=== PATIENT | male | born 1940 | race Asian ===

== ENCOUNTER 2019-09-24 13:46 | Inpatient (IN) | payer OTHER, MEDICARE ==
[2019-09-24] MEDS ORDERED: ACETAMINOPHEN 1000 MG/100 ML VIAL (NON FORMULARY) IVPB ONE (14:14)
[2019-09-24] MEDS ORDERED: FAMOTIDINE 20 MG/50 ML IVPB 50 ML IVPB ONE (14:14)
[2019-09-24] MEDS ORDERED: ONDANSETRON 4 MG/2 ML VIAL IVPUSH ONE (14:14)
[2019-09-24] MEDS ORDERED: SODIUM CHLORIDE 0.9% 1000 ML INFUS.BAG IV ONE (14:14)
[2019-09-24] MEDS ORDERED: ACETAMINOPHEN INJECTION 100 ML IVPB ONE (14:16)
[2019-09-24] MEDS ORDERED: FAMOTIDINE 20 MG/50 ML IVPB 20 MG/50 ML MG IVPB ONE ×2 (14:16→15:00)
[2019-09-24] MEDS ORDERED: ONDANSETRON 4 MG/2 ML VIAL ONE (14:16)
--- NOTE | 2019-09-24 14:22 | PDOC ---
Documentation entered by Elida Roberts SCRIBE, acting as scribe for Beverley Brantley DO. Beverley Brantley DO: This documentation has been prepared by the scribe, Elida Roberts SCRIBE, under my direction and personally reviewed by me in its entirety. I confirm that the documentation accurately reflects all work, treatment, procedures, and medical decision making performed by me. 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 The patient reports he had the stitches removed 3 days ago (09/20). The patient reports he had 2 episodes of nonbilious, nonbloody emesis today, associated with urinary symptoms of dysuria, urinary urgency, frequency, and hesitancy. The patient reports he had a fever last night to tmax of 101.2, took a dose of Tylenol at 3:00 am. Denies flank pain, abdominal pain, diarrhea. The patient reports he is having normal bowel movements and is passing flatus. Allergies: NKA Social history: no tobacco, alcohol or recreational drug use reported. Surgical history: Total R. nephrectomy PCP: Dr. Kent Past History - Medical History Allergies/Adverse Reactions: Allergies Allergy/AdvReac Type Severity Reaction Status Date / Time No Known Allergies Allergy Verified 09/24/19 13:48 Home Medications: Ambulatory Orders Amlodipine Besylate [Norvasc -] 5 mg PO DAILY 09/24/19 Apixaban [Eliquis] 5 mg PO DAILY 09/24/19 Cancer: Yes (RIGHT KIDNEY REMOVED- TRANSITIONAL CELL CARCINOMA) Cardiac Disorders: Yes (A FLUTTER H/O) CVA: No COPD: No Other medical history: RIGHT KIDNEY REMOVED- TRANSITIONAL CELL CARCINOMA - Psycho-Social/Smoking History Smoking History: Never smoked Have you smoked in the past 12 months: No - Substance Abuse Hx (Audit-C & DAST Scrn) How often the patient has a drink containing alcohol: Never Score: In Men: 4 or > Positive; In Women: 3 or > Positive: 0 Screen Result (Pos requires Nsg. Audit-10AR): Negative In the last yr the pt used illegal drug/Rx for NonMed reason: No Score: Yes response is considered Positive: 0 Screen Result (Positive result requires Nsg. DAST-10): Negative Review of Systems - Review of Systems Able to Perform ROS?: Yes Comments:: 09/24/19 14:55 GENERAL/CONSTITUTIONAL: +fever, no chills, or weakness. . HEAD, EYES, EARS, NOSE AND THROAT: No change in vision. No ear pain or discharge. No sore throat. GASTROINTESTINAL: +2 episodes of nonbilious, nonbloody vomiting, no abdominal pain, no flank pain, no diarrhea, no constipation. GENITOURINARY: +dysuria, urinary urgency, frequency and hesitancy. CARDIOVASCULAR: No chest pain or shortness of breath. RESPIRATORY: No cough, wheezing, or hemoptysis. MUSCULOSKELETAL: No joint or muscle swelling or pain. No neck or back pain. SKIN: No rash NEUROLOGIC: No headache, vertigo, loss of consciousness, or change in strength/sensation. ENDOCRINE: No increased thirst. No abnormal weight change. HEMATOLOGIC/LYMPHATIC: No anemia, easy bleeding, or history of blood clots. ALLERGIC/IMMUNOLOGIC: No hives or skin allergy. *Physical Exam - Vital Signs Last Vital Signs Temp Pulse Resp BP Pulse Ox 100.5 F H 94 H 19 178/90 H 96 09/24/19 13:48 09/24/19 13:48 09/24/19 13:48 09/24/19 13:48 09/24/19 13:48 - Physical Exam 09/24/19 14:36 Constitutional: Awake, alert, oriented. No acute distress. Head: Normocephalic. Atraumatic Eyes: PERRL. EOMI. Conjunctivae are not pale. ENT: Mucous membranes are moist and intact. Posterior pharynx without exudate or erythema. Uvula midline. Neck: Supple. Full ROM. No lymphadenopathy. Cardiovascular: +slight tachycardia, Regular rhythm. S1, S2 regular. Distal pulses are 2+ and symmetric. Pulmonary/Chest: No evidence of respiratory distress. Clear to auscultation bilaterally No wheezing, rales or rhonchi. Abdominal: soft, +tenderness over the incisions. +3 laparoscopic incision: 1 at the umbilical, left upper and right upper quadrant. +Linear incision to right upper quadrant, steri strip in place, no drainage or serosanguinous fluid underneath, +a little tenderness over the bladder, Back: No CVA tenderness. Musculoskeletal: No leg edema. No cyanosis. No clubbing. Full range of motion in all extremities. No calf tenderness. Radial/pedal pulses are intact and 2+ bilaterally Skin: Skin is warm and dry. No petechiae. No purpura. Neurological: Alert and oriented to person, place, and time. Cranial nerves II-XII are grossly intact. Normal speech. Strength is grossly symmetric. No sensory deficits. Psychiatric: Good eye contact. Normal interaction, affect and behavior. Heart Score/ECG Review - ECG Intrepretation Comment:: 09/24/19 15:46 aflutter at 82, nl axis, no acute st/t wave findings ED Treatment Course - LABORATORY CBC & Chemistry Diagram: 09/24/19 14:16 09/24/19 14:16 Medical Decision Making - Medical Decision Making 09/24/19 14:19 a/p: 79yo male with recent nephrectomy for transitional cell of the R kidney who underwent removal 09/04 and then had his catheter and sutures removed this past thursday -pt with a fever since yesterday -urinary freq, urgency, dysuria, today with nbnb vomiting -normal bm -passing flatus -n/v today, tmax 101.3 -no flank pain -no drainage from his incisions -will send labs, cultures, ua, ucx, ct abd/pelvis, cxr, covid swab -no resp symptoms -last tylenol was 3am -will hydrate, nausea control, tylenol -will most likely have a uti and need abx 09/24/19 15:18 wbc 16 +uti rocephin iv ordered discussed staying in the hospital with the patient for iv abx agrees to stay for admission ct pending 09/24/19 15:19 cxr clear 09/24/19 16:02 ct read reviewed and discussed with the patient pt states feeling better will give po challenge will need admission for uti, sepsis microblog sent to [facility] for admission 09/24/19 16:[address] Mcmillan who accepts pt to service Discharge - Discharge Information Problems reviewed: Yes Clinical Impression/Diagnosis: UTI (urinary tract infection), Sepsis Condition: Fair - Admission Yes - Follow up/Referral Referrals: Kristy Kent [Primary Care Provider] - - Patient Discharge Instructions - Post Discharge Activity
[2019-09-24 14:29] LABS: EPITHELIAL CELLS RARE /hpf
[2019-09-24] MEDS ORDERED: CEFTRIAXONE 1 GM in DEXTROSE 5%-WATER - 100 ML IVPB ONE (14:54)
[2019-09-24 15:05] LABS: ALBUMIN 3.7 g/dl (3.4-5.0); BILIRUBIN,TOTAL 1.1 mg/dl (0.2-1); CALCIUM 8.3 mg/dl (8.5-10); CREATININE 1.3 mg/dl (0.55-1.3); POTASSIUM 3.9 mmol/L (3.5-5.1); TOT PROT 6.4 g/dl (6.4-8.2)
[2019-09-24 15:12] LABS: BASO % 0.2 % (0-2.0); HEMOGLOBIN 13.5 GM/dl (11.7-16.9); LYMPH % 3.9 % (8-40); MCH 33.4 pg (25.7-33.7); MEAN CELL VOLUME 101.4 fl (80-96); MEAN PLT VOLUME 7.7 fl (7.5-11.1); MONO % 6.5 % (3.8-10.2); NEUT % 89.4 % (42.8-82.8); PLATELET COUNT 237 K/MM3 (134-434); RBC 4.04 M/mm3 (4.00-5.60); RDW 12.7 % (11.9-15.9)
[2019-09-24 17:34] VITALS: BMI 22.9
[2019-09-24] MEDS ORDERED: ONDANSETRON 4 MG/2 ML VIAL IVPUSH PRN (18:35)
[2019-09-24] MEDS: SODIUM CHLORIDE 1,000 ML IV SCH (20:01)
--- NOTE | 2019-09-24 20:45 | HP ---
CHIEF COMPLAINT: PCP: [facility] Case Manager: Galina ([facility]) HISTORY OF PRESENT ILLNESS: This is a 79-year-old male with a past medical history significant for HTN (on Norvasc), A-flutter (on Eliquis) and Transitional Cell Carcinoma of the Right Kidney s/p total right nephrectomy (09/05/19 at [facility]). Who presents to the ED with fever, NBNB emesis, and dysuria. The patient reports having the debbie removed 3 days ago. The patient reports he had 2 episodes of nonbilious, nonbloody emesis today, associated with urinary symptoms of dysuria, urinary urgency, frequency, and hesitancy. The patient reports having a subjective fever 101.2, taking Tylenol at 3:00 am. Patient denies flank pain, abdominal pain, diarrhea. The patient reports he is having normal bowel movements and is passing flatus. Patient denies sick contacts or recent travel. 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 Allergies No Known Allergies Allergy (Verified 09/24/19 13:48) HOME MEDICATIONS: Home Medications Medication Instructions Recorded Amlodipine Besylate [Norvasc -] 5 mg PO DAILY 09/24/19 Apixaban [Eliquis] 5 mg PO DAILY 09/24/19 REVIEW OF SYSTEMS CONSTITUTIONAL: fever, diaphoresis Absent: chills, generalized weakness, malaise, loss of appetite, weight change HEENT: Absent: rhinorrhea, nasal congestion, throat pain, throat swelling, difficulty swallowing, mouth swelling, ear pain, eye pain, visual changes CARDIOVASCULAR: Absent: chest pain, syncope, palpitations, irregular heart rate, lightheadedness, peripheral edema RESPIRATORY: Absent: cough, shortness of breath, dyspnea with exertion, orthopnea, wheezing, stridor, hemoptysis GASTROINTESTINAL: nausea, vomiting, Absent: abdominal pain, abdominal distension, diarrhea, constipation, melena, hematochezia GENITOURINARY: dysuria, frequency, urgency, hesitancy Absent: hematuria, flank pain, genital pain MUSCULOSKELETAL: Absent: myalgia, arthralgia, joint swelling, back pain, neck pain SKIN: Absent: rash, itching, pallor HEMATOLOGIC/IMMUNOLOGIC: Absent: easy bleeding, easy bruising, lymphadenopathy, frequent infections ENDOCRINE: Absent: unexplained weight gain, unexplained weight loss, heat intolerance, cold intolerance NEUROLOGIC: Absent: headache, focal weakness or paresthesias, dizziness, unsteady gait, seizure, mental status changes, bladder or bowel incontinence PSYCHIATRIC: Absent: anxiety, depression, suicidal or homicidal ideation, hallucinations. PHYSICAL EXAMINATION Vital Signs - 24 hr 09/24/19 09/24/19 09/24/19 13:48 16:15 17:15 Temperature 100.5 F H 98.4 F 98.5 F Pulse Rate 94 H 91 H Pulse Rate [ 80 Right] Respiratory 19 18 Rate Blood Pressure 178/90 H 157/77 Blood Pressure 145/93 [Left Arm] O2 Sat by Pulse 96 97 100 Oximetry (%) 09/24/19 17:18 Temperature Pulse Rate Pulse Rate [ Right] Respiratory Rate Blood Pressure Blood Pressure [Left Arm] O2 Sat by Pulse 98 Oximetry (%) GENERAL: Awake, alert, and fully oriented, in no acute distress. HEAD: Normal with no signs of trauma. EYES: Pupils equal, round and reactive to light, extraocular movements intact, sclera anicteric, conjunctiva clear. No lid lag. EARS, NOSE, THROAT: Ears normal, nares patent, oropharynx clear without exudates. Dry mucous membranes. NECK: Normal range of motion, supple without lymphadenopathy, JVD, or masses. LUNGS: Breath sounds equal, clear to auscultation bilaterally. No wheezes, and no crackles. No accessory muscle use. HEART: Regular rate and rhythm, normal S1 and S2 without murmur, rub or gallop. ABDOMEN: Soft, nontender, not distended, normoactive bowel sounds, no guarding, no rebound, no masses. No hepatomegaly or splenomegaly. Surgical scar- healed MUSCULOSKELETAL: Normal range of motion at all joints. No bony deformities or tenderness. No CVA tenderness. UPPER EXTREMITIES: 2+ pulses, warm, well-perfused. No cyanosis. No clubbing. No peripheral edema. LOWER EXTREMITIES: 2+ pulses, warm, well-perfused. No calf tenderness. No peripheral edema. NEUROLOGICAL: Cranial nerves II-XII intact. Normal speech. Gait not observed. PSYCHIATRIC: Cooperative. Good eye contact. Appropriate mood and affect. SKIN: Warm, dry, normal turgor, no rashes or lesions noted, normal capillary re fill. Laboratory Results - last 24 hr 09/24/19 09/24/19 09/24/19 13:58 14:16 14:16 WBC 16.0 H RBC 4.04 Hgb 13.5 Hct 41.0 MCV 101.4 H MCH 33.4 MCHC 33.0 RDW 12.7 Plt Count 237 MPV 7.7 Absolute Neuts (auto) 14.4 Neutrophils % 89.4 H D Lymphocytes % 3.9 L D Monocytes % 6.5 Eosinophils % 0.0 D Basophils % 0.2 PTT (Actin FS) 26.7 Sodium Potassium Chloride Carbon Dioxide Anion Gap BUN Creatinine Est GFR (CKD-EPI)AfAm Est GFR (CKD-EPI)NonAf Random Glucose Lactic Acid Calcium Total Bilirubin AST ALT Alkaline Phosphatase Total Protein Albumin Urine Color Yellow Urine Appearance Slightly Urine pH 7.0 Urine Protein 2+ H Urine Glucose (UA) Negative Urine Ketones Trace Urine Blood 1+ H Urine Nitrite Negative Urine Bilirubin Negative Urine Urobilinogen 1.0 Ur Leukocyte Esterase 2+ Urine RBC 10-20 Urine WBC 40-60 Ur Transition Epith Cell Rare Urine Bacteria Moderate 09/24/19 09/24/19 14:16 14:16 WBC RBC Hgb Hct MCV MCH MCHC RDW Plt Count MPV Absolute Neuts (auto) Neutrophils % Lymphocytes % Monocytes % Eosinophils % Basophils % PTT (Actin FS) Sodium 130 L Potassium 3.9 Chloride 100 Carbon Dioxide 22 Anion Gap 8 BUN 17.0 Creatinine 1.3 Est GFR (CKD-EPI)AfAm 60.15 Est GFR (CKD-EPI)NonAf 51.90 Random Glucose 148 H Lactic Acid 1.1 Calcium 8.3 L Total Bilirubin 1.1 H AST 41 H ALT 36 Alkaline Phosphatase 86 Total Protein 6.4 Albumin 3.7 Urine Color Urine Appearance Urine pH Urine Protein Urine Glucose (UA) Urine Ketones Urine Blood Urine Nitrite Urine Bilirubin Urine Urobilinogen Ur Leukocyte Esterase Urine RBC Urine WBC Ur Transition Epith Cell Urine Bacteria ASSESSMENT/PLAN: This is a 79 y/o male with a PMHx of HTN (on Norvasc), A- Flutter (On Eliquis), Transitional Cell Carcinoma of the Right Kidney s/p R- Nephrectomy ([facility], 09/05/19). Admitted for Sepsis, Complicated UTI for further evaluation of their emergent condition. Plan: See Problem List FEN PO fluids as tolerated Replete lytes prn Low Na Diet DVT ppx OOB SCDs Continue Eliquis Dispo: Requires Inpatient Care Family Medical History Family History: As Documented Family Hx Cancer: Father (Liver, age 88) Problem List - Problem (1) Sepsis Assessment/Plan: Likely secondary to UTI qSOFA 0 Sepsis Critera Met: T 100.5, WBC 16 Urine culture-pending +Leukocytosis with L-shift T Max 100.5~101.5 Fluid bolus given in ED Continue IVF Continue Rocephin for UTI Appreciate ID consult Monitor CBC, BMP Monitor vitals Maintain MAP>65 Tylenol prn Code(s): A41.9 - SEPSIS, UNSPECIFIED ORGANISM (2) Complicated UTI (urinary tract infection) Assessment/Plan: s/p Long removal (outpatient) UA- +2 protein, +1 blood, +2 leukocyte esterase, 40-60 WBC, moderate Bacteria Urine Culture-pending Sepsis Criteria Met Ceftriaxone initiated in ED, will continue Appreciate ID consult Monitor CBC, CMP Monitor vitals Tylenol prn Code(s): N39.0 - URINARY TRACT INFECTION, SITE NOT SPECIFIED (3) Hyponatremia Assessment/Plan: Likely due to Dehydration Continue IVF Monitor CMP Monitor vitals Code(s): E87.1 - HYPO-OSMOLALITY AND HYPONATREMIA (4) Hyperglycemia Assessment/Plan: Likely secondary to Sepsis due to UTI Monitor CMP Code(s): R73.9 - HYPERGLYCEMIA, UNSPECIFIED (5) HTN (hypertension) Assessment/Plan: stable Monitor BP Continue Norvasc Code(s): I10 - ESSENTIAL (PRIMARY) HYPERTENSION (6) S/p nephrectomy Assessment/Plan: Secondary to Transitional Cell Ca R- Kidney f/u with Nephrology outpatient Monitor CMP Code(s): Z90.5 - ACQUIRED ABSENCE OF KIDNEY (7) Encounter for screening laboratory testing for COVID-19 virus Assessment/Plan: Low Risk Covid PCR-pending Isolation Precautions Code(s): Z11.59 - ENCOUNTER FOR SCREENING FOR OTHER VIRAL DISEASES Visit type - Medication Review Med list reviewed for High Risk Meds patients 65 and older: Yes - Emergency Visit Emergency Visit: Yes ED Registration Date: 08/15/20 Care time: The patient presented to the Emergency Department on the above date and was hospitalized for further evaluation of their emergent condition. - New Patient This patient is new to me today: Yes Date on this admission: 09/24/19 - Critical Care Critical Care patient: No
[2019-09-24] MEDS: APIXABAN 5 MG TABLET PO SCH (21:39)
[2019-09-24] MEDS: ACETAMINOPHEN 325 MG TABLET (FP) PO PRN (23:31)
[2019-09-25] MEDS: ACETAMINOPHEN 325 MG TABLET (FP) PO PRN (06:15)
--- NOTE | 2019-09-25 08:56 | PN ---
Physical Exam: SUBJECTIVE: Patient seen and examined at bedside,reports chills overnight, c/o dysuria and urinary dribbling, denies fever, chills, hematuria, abdominal/ flank pain. OBJECTIVE: Vital Signs Period Temp Pulse Resp BP Sys/Garcia Pulse Ox Last 24 Hr 98.4 F-101.5 F 80-108 18-19 135-178/76-93 96-100 GENERAL: The patient is awake, alert, and fully oriented, in no acute distress. HEAD: Normal with no signs of trauma. EYES: PERRL, extraocular movements intact, sclera anicteric, conjunctiva clear. No ptosis. ENT: Ears normal, nares patent, oropharynx clear without exudates, moist mucous membranes. NECK: Trachea midline, full range of motion, supple. LUNGS: Breath sounds equal, clear to auscultation bilaterally, no wheezes, no crackles, no accessory muscle use. HEART: Regular rate and rhythm, S1, S2 without murmur, rub or gallop. ABDOMEN: Soft, nontender, nondistended, normoactive bowel sounds, no guarding, no rebound, no hepatosplenomegaly, no masses. surgical incision remains clean and dry EXTREMITIES: 2+ pulses, warm, well-perfused, no edema. NEUROLOGICAL: Cranial nerves II through XII grossly intact. Normal speech, gait not observed. PSYCH: Normal mood, normal affect. SKIN: Warm, dry, normal turgor, no rashes or lesions noted Laboratory Results - last 24 hr 09/24/19 09/24/19 09/24/19 13:58 14:16 14:16 WBC 16.0 H RBC 4.04 Hgb 13.5 Hct 41.0 MCV 101.4 H MCH 33.4 MCHC 33.0 RDW 12.7 Plt Count 237 MPV 7.7 Absolute Neuts (auto) 14.4 Neutrophils % 89.4 H D Lymphocytes % 3.9 L D Monocytes % 6.5 Eosinophils % 0.0 D Basophils % 0.2 PTT (Actin FS) 26.7 Sodium Potassium Chloride Carbon Dioxide Anion Gap BUN Creatinine Est GFR (CKD-EPI)AfAm Est GFR (CKD-EPI)NonAf POC Glucometer Random Glucose Lactic Acid Calcium Total Bilirubin AST ALT Alkaline Phosphatase Total Protein Albumin Urine Color Yellow Urine Appearance Slightly Urine pH 7.0 Urine Protein 2+ H Urine Glucose (UA) Negative Urine Ketones Trace Urine Blood 1+ H Urine Nitrite Negative Urine Bilirubin Negative Urine Urobilinogen 1.0 Ur Leukocyte Esterase 2+ Urine RBC 10-20 Urine WBC 40-60 Ur Transition Epith Cell Rare Urine Bacteria Moderate 09/24/19 09/24/19 09/25/19 14:16 14:16 05:57 WBC RBC Hgb Hct MCV MCH MCHC RDW Plt Count MPV Absolute Neuts (auto) Neutrophils % Lymphocytes % Monocytes % Eosinophils % Basophils % PTT (Actin FS) Sodium 130 L Potassium 3.9 Chloride 100 Carbon Dioxide 22 Anion Gap 8 BUN 17.0 Creatinine 1.3 Est GFR (CKD-EPI)AfAm 60.15 Est GFR (CKD-EPI)NonAf 51.90 POC Glucometer 113 Random Glucose 148 H Lactic Acid 1.1 Calcium 8.3 L Total Bilirubin 1.1 H AST 41 H ALT 36 Alkaline Phosphatase 86 Total Protein 6.4 Albumin 3.7 Urine Color Urine Appearance Urine pH Urine Protein Urine Glucose (UA) Urine Ketones Urine Blood Urine Nitrite Urine Bilirubin Urine Urobilinogen Ur Leukocyte Esterase Urine RBC Urine WBC Ur Transition Epith Cell Urine Bacteria Active Medications Generic Name Dose Route Start Last Admin Trade Name Freq PRN Reason Stop Dose Admin Acetaminophen 650 mg 09/24/19 18:33 09/25/19 06:15 Tylenol - PO 650 mg Q6H PRN Administration FEVER Amlodipine Besylate 5 mg 09/25/19 10:00 Norvasc - PO DAILY LISBETH Apixaban 5 mg 09/24/19 22:00 09/24/19 21:39 Eliquis - PO 5 mg BID LISBETH Administration Ceftriaxone Sodium 1 gm/ 50 mls @ 100 mls/hr 09/25/19 10:00 Dextrose IVPB DAILY LISBETH Sodium Chloride 1,000 mls @ 100 mls/hr 09/24/19 18:45 09/24/19 20:01 Normal Saline - IV 100 mls/hr ASDIR LISBETH Administration Famotidine/Sodium Chloride 20 mg in 50 mls @ 100 mls/hr 09/25/19 10:00 Pepcid 20 Mg Premixed Ivpb - IVPB DAILY [facility] Ondansetron HCl 4 mg 09/24/19 18:35 Zofran Injection IVPUSH Q6H PRN NAUSEA Tamsulosin HCl 0.4 mg 09/25/19 08:30 Flomax - PO DAILY@0830 LISBETH Microbiology 09/24/19 13:58 Urine Culture - Preliminary Urine - Urine Clean Catch Group D Strep Or Entero Coccus Non Lactose Fermenting Gnb CxR: No acute lung pathology CT abdomen/ Pelvis: No acute pathology EKG : A-Flutter ASSESSMENT/PLAN: 79 y/o male with a PMHx of HTN (on Norvasc), A- Flutter (On Eliquis), Transitional Cell Carcinoma of the Right Kidney s/p R- Nephrectomy ([place], 09/05/19). Admitted for Sepsis, Complicated UTI for further evaluation of their emergent condition. *Sepsis Likely secondary to UTI -qSOFA 0 Sepsis Critera Met: T 100.5, WBC 16 Urine culture- Group D Strep Or Entero Coccus Non Lactose Fermenting Gnb T Max 101.5, normal LACTIC ACID - wbc slowly trending down 15.8 - S/P Fluid bolus given in ED -Continue IVF -s/p Rocephin - ID consult appreciated ,switched to Zosyn - fever control - will f/u on BC *Complicated UTI -s/p Long removal (outpatient) -UA- +2 protein, +1 blood, +2 leukocyte esterase, 40-60 WBC, moderate Bacteria -Urine Culture-Group D Strep Or Entero Coccus Non Lactose Fermenting Gnb -s/p Ceftriaxone, now switched to Zosyn by ID - ID following -T.B 1.2, ASt/ALT/ALK - wnl - benign abdominal exam *Hyponatremia-Likely due to Dehydration- resolved - Na 130>137 -Continue IVF -Monitor CMP * Hyperglycemia-Likely secondary to Sepsis due to UTI - BS improved - will check Hgb Alc *HTN -Continue Norvasc -will monitor BP closely * A-Flutter - on Eliquis *S/p nephrectomy-Secondary to Transitional Cell Ca R- Kidney f/u with Nephrology outpatient Dr. Jones ? Monitor CMP *Encounter for screening laboratory testing for COVID-19 virus -Covid PCR-pending * F/E/N: IV hydration, replace electrolyte as needed. * VTE: Eliquis Visit type - Emergency Visit Emergency Visit: Yes ED Registration Date: 09/24/19 Care time: The patient presented to the Emergency Department on the above date and was hospitalized for further evaluation of their emergent condition. - New Patient This patient is new to me today: Yes Date on this admission: 09/25/19 - Critical Care Critical Care patient: No - Medication Review Med list reviewed for High Risk Meds patients 65 and older: Yes
[2019-09-25] MEDS ORDERED: DEXTROSE 5%-WATER - 50 ML IVPB ONE ×3 (09:06→16:58)
[2019-09-25] MEDS ORDERED: cefTRIAXone SODIUM 1 GM VIAL ONE (09:06)
[2019-09-25 09:12] LABS: HEMATOCRIT 37.9 % (35.4-49); HEMOGLOBIN 12.4 GM/dl (11.7-16.9); MCH 32.9 pg (25.7-33.7); MCHC 32.6 g/dl (32.0-35.9); MEAN PLT VOLUME 8.6 fl (7.5-11.1); PLATELET COUNT 213 K/MM3 (134-434); RBC 3.76 M/mm3 (4.00-5.60); RDW 12.9 % (11.9-15.9); WHITE BLOOD COUNT 15.8 K/mm3 (4.0-10.8)
[2019-09-25 09:15] LABS: ALBUMIN 3.2 g/dl (3.4-5.0); BILIRUBIN,TOTAL 1.2 mg/dl (0.2-1); CALCIUM 8.1 mg/dl (8.5-10); CREATININE 1.2 mg/dl (0.55-1.3); TOT PROT 5.7 g/dl (6.4-8.2)
[2019-09-25] MEDS: FAMOTIDINE 20 MG/50 ML IVPB 20 MG/50 ML MG IVPB SCH (09:31)
[2019-09-25] MEDS: amLODIPine BESYLATE 5 MG TABLET (FP) PO SCH (09:31)
[2019-09-25] MEDS: APIXABAN 5 MG TABLET PO SCH ×2 (09:31→21:20)
[2019-09-25] MEDS: TAMSULOSIN HCL 0.4 MG CAP PO SCH (09:31)
[2019-09-25] MEDS ORDERED: CEFTRIAXONE 1 GM in DEXTROSE 5%-WATER - 50 ML IVPB SCH (10:00)
[2019-09-25 10:17] LABS: PLATELET ESTIMATE ADEQUATE
--- NOTE | 2019-09-25 12:48 | CON.ID ---
Consult - History of Present Illness History of Present Illness: 79 y.o. 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 Pt states stitches from the surgical site and sutton catheter were removed 3 days ago and has no flank/abd pain. Reports urinary urgency but difficulty urinating mainly. In the ER, he was noted to have a temp of 101.5F and elevated wbc 16K. CT scan without evidence of collection in renal fossa but U/A indicative of UTI. Was started on Ceftriaxone. Today states he is feeling slightly better with less urinary hesitancy. Temp this a.m. was 99.2F. - History Source History Provided By: Patient Limitations to Obtaining History: No Limitations - Past Medical History Cardio/Vascular: Yes: AFIB, HTN Heme/Onc: Yes: Other (transitional cell CA Rt kidney) - Past Surgical History Past Surgical History: Yes: Nephrectomy (Rt) - Alcohol/Substance Use Hx Alcohol Use: No - Smoking History Smoking history: Never smoked Have you smoked in the past 12 months: No Aproximately how many cigarettes per day: 0 - Social History History of Recent Travel: No Home Medications - Allergies Allergies/Adverse Reactions: Allergies Allergy/AdvReac Type Severity Reaction Status Date / Time No Known Allergies Allergy Verified 09/24/19 13:48 - Home Medications Home Medications: Ambulatory Orders Amlodipine Besylate [Norvasc -] 5 mg PO DAILY 09/24/19 Apixaban [Eliquis] 5 mg PO DAILY 09/24/19 Family Medical History Family Hx Cancer: Father (Liver, age 88) Review of Systems - Review of Systems Constitutional: reports: No Symptoms Eyes: reports: No Symptoms HENT: reports: No Symptoms Neck: reports: No Symptoms Cardiovascular: reports: No Symptoms Respiratory: reports: No Symptoms Gastrointestinal: reports: No Symptoms Genitourinary: reports: Other (urinary hesitancy) Musculoskeletal: reports: No Symptoms Integumentary: reports: No Symptoms Neurological: reports: No Symptoms Endocrine: reports: No Symptoms Hematology/Lymphatic: reports: No Symptoms Psychiatric: reports: No Symptoms Physical Exam Vital Signs: Vital Signs Temperature 99.2 F 09/25/19 06:00 Pulse Rate 94 H 09/25/19 06:00 Respiratory Rate 18 09/25/19 06:00 Blood Pressure 135/76 09/25/19 06:00 O2 Sat by Pulse Oximetry (%) 100 09/25/19 06:00 Constitutional: Yes: No Distress, Calm Eyes: Yes: Conjunctiva Clear, EOM Intact HENT: Yes: Atraumatic Neck: Yes: Supple Cardiovascular: Yes: Regular Rate and Rhythm Respiratory: Yes: CTA Bilaterally Gastrointestinal: Yes: Normal Bowel Sounds, Soft Renal/: Yes: WNL Musculoskeletal: Yes: WNL Extremities: Yes: WNL Edema: No Integumentary: Yes: WNL Wound/Incision: Yes: Clean/Dry Neurological: Yes: Alert, Oriented Psychiatric: Yes: Alert Labs: CBC, BMP 09/25/19 06:00 09/25/19 06:00 Laboratory Tests 09/24/19 09/24/19 09/24/19 13:58 14:16 14:16 WBC 16.0 H RBC 4.04 Hgb 13.5 Hct 41.0 MCV 101.4 H MCH 33.4 MCHC 33.0 RDW 12.7 Plt Count 237 MPV 7.7 Absolute Neuts (auto) 14.4 Neutrophils % 89.4 H D Neutrophils % (Manual) Lymphocytes % 3.9 L D Lymphocytes % (Manual) Monocytes % 6.5 Monocytes % (Manual) Eosinophils % 0.0 D Basophils % 0.2 Hypochromia Platelet Estimate PTT (Actin FS) 26.7 Sodium Potassium Chloride Carbon Dioxide Anion Gap BUN Creatinine Est GFR (CKD-EPI)AfAm Est GFR (CKD-EPI)NonAf POC Glucometer Random Glucose Lactic Acid Calcium Total Bilirubin AST ALT Alkaline Phosphatase Total Protein Albumin Urine Color Yellow Urine Appearance Slightly Urine pH 7.0 Urine Protein 2+ H Urine Glucose (UA) Negative Urine Ketones Trace Urine Blood 1+ H Urine Nitrite Negative Urine Bilirubin Negative Urine Urobilinogen 1.0 Ur Leukocyte Esterase 2+ Urine RBC 10-20 Urine WBC 40-60 Ur Transition Epith Cell Rare Urine Bacteria Moderate COVID-19 (NAKUL) 09/24/19 09/24/19 09/24/19 14:16 14:16 14:38 WBC RBC Hgb Hct MCV MCH MCHC RDW Plt Count MPV Absolute Neuts (auto) Neutrophils % Neutrophils % (Manual) Lymphocytes % Lymphocytes % (Manual) Monocytes % Monocytes % (Manual) Eosinophils % Basophils % Hypochromia Platelet Estimate PTT (Actin FS) Sodium 130 L Potassium 3.9 Chloride 100 Carbon Dioxide 22 Anion Gap 8 BUN 17.0 Creatinine 1.3 Est GFR (CKD-EPI)AfAm 60.15 Est GFR (CKD-EPI)NonAf 51.90 POC Glucometer Random Glucose 148 H Lactic Acid 1.1 Calcium 8.3 L Total Bilirubin 1.1 H AST 41 H ALT 36 Alkaline Phosphatase 86 Total Protein 6.4 Albumin 3.7 Urine Color Urine Appearance Urine pH Urine Protein Urine Glucose (UA) Urine Ketones Urine Blood Urine Nitrite Urine Bilirubin Urine Urobilinogen Ur Leukocyte Esterase Urine RBC Urine WBC Ur Transition Epith Cell Urine Bacteria COVID-19 (NAKUL) Not detected 09/25/19 09/25/19 09/25/19 05:57 06:00 06:00 WBC 15.8 H RBC 3.76 L Hgb 12.4 Hct 37.9 MCV 101.0 H MCH 32.9 MCHC 32.6 RDW 12.9 Plt Count 213 MPV 8.6 D Absolute Neuts (auto) 13.2 Neutrophils % No Result Required. Neutrophils % (Manual) 82.0 Lymphocytes % No Result Required. Lymphocytes % (Manual) 9.0 Monocytes % Monocytes % (Manual) 9 Eosinophils % Basophils % Hypochromia 1+ Platelet Estimate Adequate PTT (Actin FS) Sodium 137 Potassium 4.0 Chloride 104 Carbon Dioxide 23 Anion Gap 10 BUN 14.0 Creatinine 1.2 Est GFR (CKD-EPI)AfAm 66.26 Est GFR (CKD-EPI)NonAf 57.17 POC Glucometer 113 Random Glucose 98 Lactic Acid Calcium 8.1 L Total Bilirubin 1.2 H AST 30 ALT 37 Alkaline Phosphatase 82 Total Protein 5.7 L Albumin 3.2 L Urine Color Urine Appearance Urine pH Urine Protein Urine Glucose (UA) Urine Ketones Urine Blood Urine Nitrite Urine Bilirubin Urine Urobilinogen Ur Leukocyte Esterase Urine RBC Urine WBC Ur Transition Epith Cell Urine Bacteria COVID-19 (NAKUL) Microbiology 09/24/19 13:58 Urine - Urine Clean Catch Urine Culture - Preliminary Group D Strep Or Entero Coccus Non Lactose Fermenting Gnb Imaging - Results Chest X-ray: Report Reviewed Cat Scan: Report Reviewed Problem List - Problems (1) Transitional cell carcinoma Code(s): C68.9 - MALIGNANT NEOPLASM OF URINARY ORGAN, UNSPECIFIED (2) Complicated UTI (urinary tract infection) Code(s): N39.0 - URINARY TRACT INFECTION, SITE NOT SPECIFIED (3) HTN (hypertension) Code(s): I10 - ESSENTIAL (PRIMARY) HYPERTENSION (4) S/p nephrectomy Code(s): Z90.5 - ACQUIRED ABSENCE OF KIDNEY Assessment/Plan 79 y.o. male with PMH of transitional Cell CA s/p Rt nephrectomy on 09/05/19, HTN, and AFIB presents with c/o fever, dysuria, and vomiting Complicated UTI Transitional Cell CA s/p total Rt nephrectomy HTN AFIB -- Urine culture results so far reviewed. Will change antibiotics to Zosyn for now. -- follow up final urine culture isolates and blood culture results -- monitor wbc/temp trends -- monitor vitals Will follow Thank you
[2019-09-25] MEDS: PIPERACILLIN/TAZOB 3.375 GM 3.375 GM in DEXTROSE 5%-WATER - 50 ML IVPB SCH ×2 (13:30→17:21)
[2019-09-25] MEDS ORDERED: PIPERACILLIN/TAZOBACTAM 3.375 GM VIAL IVPB ONE ×2 (14:13→16:58)
[2019-09-25] MEDS: SODIUM CHLORIDE 1,000 ML IV SCH (18:53)
--- NOTE | 2019-09-25 18:54 | EKG ---
Test Reason : Blood Pressure : / mmHG Vent. Rate : 082 BPM Atrial Rate : 267 BPM P-R Int : 000 ms QRS Dur : 094 ms QT Int : 390 ms P-R-T Axes : 000 -11 010 degrees QTc Int : 455 ms ATRIAL FLUTTER WITH VARIABLE A-V BLOCK INCOMPLETE RIGHT BUNDLE BRANCH BLOCK ABNORMAL ECG WHEN COMPARED WITH ECG OF 27-SEP-2017 10:36, NO SIGNIFICANT CHANGE WAS FOUND Confirmed by MD JACQUE, MYKE ([id number]) on 09/25/2019 6:54:05 PM Referred By: ROXY STOCK Confirmed By:MYKE SANTILLAN MD
[2019-09-26] MEDS ORDERED: PIPERACILLIN/TAZOBACTAM 3.375 GM VIAL IVPB ONE ×3 (02:19→17:12)
[2019-09-26] MEDS ORDERED: DEXTROSE 5%-WATER - 50 ML IVPB ONE ×3 (02:19→17:12)
[2019-09-26] MEDS: PIPERACILLIN/TAZOB 3.375 GM 3.375 GM in DEXTROSE 5%-WATER - 50 ML IVPB SCH ×3 (02:29→17:27)
[2019-09-26 08:41] LABS: BASO % 0.8 % (0-2.0); EOS % 0.8 % (0-4.5); HEMATOCRIT 41.3 % (35.4-49); HEMOGLOBIN 13.8 GM/dl (11.7-16.9); LYMPH % 17.7 % (8-40); MCH 33.5 pg (25.7-33.7); MCHC 33.4 g/dl (32.0-35.9); MEAN CELL VOLUME 100.4 fl (80-96); NEUT % 72.7 % (42.8-82.8); PLATELET COUNT 253 K/MM3 (134-434); RBC 4.12 M/mm3 (4.00-5.60); RDW 12.7 % (11.9-15.9); WHITE BLOOD COUNT 10.5 K/mm3 (4.0-10.8)
[2019-09-26 08:48] LABS: ALBUMIN 3.4 g/dl (3.4-5.0); BILIRUBIN,TOTAL 1.5 mg/dl (0.2-1); CALCIUM 8.7 mg/dl (8.5-10); CREATININE 1.3 mg/dl (0.55-1.3); POTASSIUM 3.9 mmol/L (3.5-5.1); TOT PROT 6.4 g/dl (6.4-8.2)
[2019-09-26] MEDS: TAMSULOSIN HCL 0.4 MG CAP PO SCH (10:05)
--- NOTE | 2019-09-26 10:05 | PN ---
Physical Exam: SUBJECTIVE: Patient seen and examined. No fevers/chills. Voiding well. OBJECTIVE: WBC decreased to 10.5. Vital Signs Period Temp Pulse Resp BP Sys/Garcia Pulse Ox Last 24 Hr 98.6 F-100.0 F 87-99 18-18 127-149/65-77 96-100 GENERAL: The patient is awake, alert, and fully oriented, in no acute distress. HEAD: Normal with no signs of trauma. EYES: PERRL, extraocular movements intact, sclera anicteric, conjunctiva clear. No ptosis. ENT: Ears normal, nares patent, oropharynx clear without exudates, moist mucous membranes. NECK: Trachea midline, full range of motion, supple. LUNGS: Breath sounds equal, clear to auscultation bilaterally, no wheezes, no crackles, no accessory muscle use. HEART: Regular rate and rhythm, S1, S2 without murmur, rub or gallop. ABDOMEN: Soft, nontender, nondistended, normoactive bowel sounds, no guarding, no rebound, no hepatosplenomegaly, no masses. Nephrectomyincisions clean and dry. EXTREMITIES: 2+ pulses, warm, well-perfused, no edema. NEUROLOGICAL: Cranial nerves II through XII grossly intact. Normal speech, gait not observed. PSYCH: Normal mood, normal affect. SKIN: Warm, dry, normal turgor, no rashes or lesions noted Laboratory Results - last 24 hr 09/24/19 09/25/19 09/25/19 14:38 06:00 06:00 WBC RBC Hgb Hct MCV MCH MCHC RDW Plt Count MPV Absolute Neuts (auto) Neutrophils % Neutrophils % (Manual) 82.0 Lymphocytes % Lymphocytes % (Manual) 9.0 Monocytes % Monocytes % (Manual) 9 Eosinophils % Basophils % Hypochromia 1+ Platelet Estimate Adequate Sodium Potassium Chloride Carbon Dioxide Anion Gap BUN Creatinine Est GFR (CKD-EPI)AfAm Est GFR (CKD-EPI)NonAf Random Glucose Hemoglobin A1c % 6.2 Calcium Total Bilirubin AST ALT Alkaline Phosphatase Total Protein Albumin COVID-19 (NAKUL) Not detected 09/26/19 09/26/19 07:09 07:09 WBC 10.5 RBC 4.12 Hgb 13.8 Hct 41.3 MCV 100.4 H MCH 33.5 MCHC 33.4 RDW 12.7 Plt Count 253 MPV 8.0 Absolute Neuts (auto) 7.6 Neutrophils % 72.7 Neutrophils % (Manual) Lymphocytes % 17.7 D Lymphocytes % (Manual) Monocytes % 8.0 Monocytes % (Manual) Eosinophils % 0.8 D Basophils % 0.8 D Hypochromia Platelet Estimate Sodium 136 Potassium 3.9 Chloride 103 Carbon Dioxide 22 Anion Gap 11 BUN 12.0 Creatinine 1.3 Est GFR (CKD-EPI)AfAm 60.15 Est GFR (CKD-EPI)NonAf 51.90 Random Glucose 117 H Hemoglobin A1c % Calcium 8.7 Total Bilirubin 1.5 H AST 45 H ALT 61 Alkaline Phosphatase 114 D Total Protein 6.4 Albumin 3.4 COVID-19 (NAKUL) Active Medications Generic Name Dose Route Start Last Admin Trade Name Freq PRN Reason Stop Dose Admin Acetaminophen 650 mg 09/24/19 18:33 09/25/19 06:15 Tylenol - PO 650 mg Q6H PRN Administration FEVER Amlodipine Besylate 5 mg 09/25/19 10:00 09/25/19 09:31 Norvasc - PO 5 mg DAILY LISBETH Administration Apixaban 5 mg 09/24/19 22:00 09/25/19 21:20 Eliquis - PO 5 mg BID LISBETH Administration Sodium Chloride 1,000 mls @ 100 mls/hr 09/24/19 18:45 09/25/19 18:53 Normal Saline - IV 100 mls/hr ASDIR LISBETH Administration Famotidine/Sodium Chloride 20 mg in 50 mls @ 100 mls/hr 09/25/19 10:00 09/25/19 09:31 Pepcid 20 Mg Premixed Ivpb - IVPB 100 mls/hr DAILY LISBETH Administration Piperacillin Sod/Tazobactam 50 mls @ 100 mls/hr 09/25/19 12:30 09/26/19 02:29 Sod 3.375 gm/ Dextrose IVPB 100 mls/hr Q8H-IV LISBETH Administration Protocol Ondansetron HCl 4 mg 09/24/19 18:35 Zofran Injection IVPUSH Q6H PRN NAUSEA Tamsulosin HCl 0.4 mg 09/25/19 08:30 09/25/19 09:31 Flomax - PO 0.4 mg DAILY@0830 LISBETH Administration CXR: No acute lung pathology CT abdomen/ Pelvis: No acute pathology EKG : A-Flutter ASSESSMENT/PLAN: 79 y/o male with a PMHx of HTN (on Norvasc), A- Flutter (On Eliquis), 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 Admitted for Sepsis, Complicated UTI for further evaluation of their emergent condition. -Sepsis secondary to UTI -qSOFA 0 Sepsis Critera Met: T 100.5, WBC 16 Urine culture- Group D Strep Or Entero Coccus Non Lactose Fermenting Gnb - sensitivities pending T Max 101.5, normal lactic acid - wbc slowly trending down 10.5 - S/P Fluid bolus given in ED -Continue IVF -s/p Rocephin x1 - ID consult appreciated ,switched to Zosyn (09/24 -) - fever control - will f/u on BC *Complicated UTI -s/p Long removal (outpatient) -UA- +2 protein, +1 blood, +2 leukocyte esterase, 40-60 WBC, moderate Bacteria -Urine Culture-Group D Strep Or Entero Coccus Non Lactose Fermenting Gnb -s/p Ceftriaxone, now switched to Zosyn by ID - ID following -T.B 1.2, ASt/ALT/ALK - wnl - benign abdominal exam *Hyponatremia-Likely due to Dehydration- resolved * Hyperglycemia-Likely secondary to Sepsis due to UTI - BS improved - A1C 6.2 *HTN -Continue Norvasc -will monitor BP closely * A-Flutter - on Eliquis *S/p nephrectomy-Secondary to Transitional Cell Ca R- Kidney f/u with Nephrology outpatient Dr. Jones ? Monitor CMP *Encounter for screening laboratory testing for COVID-19 virus -Covid PCR-pending * F/E/N: IV hydration, replace electrolytes as needed. * VTE: Eliquis Dispo: Continues to require inpatient care. Can likely dc on oral abx when sensitivities resulted if blood cultures remain neg. Visit type - Emergency Visit Emergency Visit: Yes ED Registration Date: 09/24/19 Care time: The patient presented to the Emergency Department on the above date and was hospitalized for further evaluation of their emergent condition. - New Patient This patient is new to me today: Yes Date on this admission: 10/11/19 - Critical Care Critical Care patient: No - Discharge Referral Referred to [facility] Med [facility] No - Medication Review Med list reviewed for High Risk Meds patients 65 and older: Yes
[2019-09-26] MEDS: amLODIPine BESYLATE 5 MG TABLET (FP) PO SCH (10:16)
[2019-09-26] MEDS: APIXABAN 5 MG TABLET PO SCH ×2 (10:16→21:41)
[2019-09-26] MEDS ORDERED: MAGNESIUM CITRATE 300 ML BOTTLE PO ONE (10:26)
[2019-09-26] MEDS: FAMOTIDINE 20 MG/50 ML IVPB 20 MG/50 ML MG IVPB SCH (10:26)
--- NOTE | 2019-09-26 16:31 | PN ---
Progress Note, Physician History of Present Illness: stable no new issues - Current Medication List Current Medications: Active Medications Acetaminophen (Tylenol -) 650 mg PO Q6H PRN PRN Reason: FEVER Last Admin: 09/25/19 06:15 Dose: 650 mg Documented by: Amlodipine Besylate (Norvasc -) 5 mg PO DAILY [facility] Last Admin: 09/26/19 10:16 Dose: 5 mg Documented by: Apixaban (Eliquis -) 5 mg PO BID [facility] Last Admin: 09/26/19 10:16 Dose: 5 mg Documented by: Sodium Chloride (Normal Saline -) 1,000 mls @ 100 mls/hr IV ASDIR [facility] Last Admin: 09/25/19 18:53 Dose: 100 mls/hr Documented by: Famotidine/Sodium Chloride (Pepcid 20 Mg Premixed Ivpb -) 20 mg in 50 mls @ 100 mls/hr IVPB DAILY [facility] Last Admin: 09/26/19 10:26 Dose: 100 mls/hr Documented by: Piperacillin Sod/Tazobactam (Sod 3.375 gm/ Dextrose) 50 mls @ 100 mls/hr IVPB Q8H-IV LISBETH; Protocol Last Admin: 09/26/19 10:17 Dose: 100 mls/hr Documented by: Ondansetron HCl (Zofran Injection) 4 mg IVPUSH Q6H PRN PRN Reason: NAUSEA Tamsulosin HCl (Flomax -) 0.4 mg PO DAILY@0830 [facility] Last Admin: 09/26/19 10:05 Dose: 0.4 mg Documented by: - Objective Vital Signs: Vital Signs Temperature 98.4 F 09/26/19 14:00 Pulse Rate 85 09/26/19 14:00 Respiratory Rate 17 09/26/19 14:00 Blood Pressure 125/64 09/26/19 14:00 O2 Sat by Pulse Oximetry (%) 100 09/26/19 14:00 Constitutional: Yes: No Distress, Calm Cardiovascular: Yes: S1, S2 Respiratory: Yes: Regular, CTA Bilaterally Gastrointestinal: Yes: Normal Bowel Sounds, Soft Musculoskeletal: Yes: WNL Extremities: Yes: WNL Neurological: Yes: Alert, Oriented Psychiatric: Yes: Alert, Oriented Labs: CBC, BMP 09/26/19 07:09 09/26/19 07:09 Assessment/Plan Problem List - Problems (1) Transitional cell carcinoma Code(s): C68.9 - MALIGNANT NEOPLASM OF URINARY ORGAN, UNSPECIFIED (2) Complicated UTI (urinary tract infection) Code(s): N39.0 - URINARY TRACT INFECTION, SITE NOT SPECIFIED (3) HTN (hypertension) Code(s): I10 - ESSENTIAL (PRIMARY) HYPERTENSION (4) S/p nephrectomy Code(s): Z90.5 - ACQUIRED ABSENCE OF KIDNEY Assessment/Plan 79 y.o. male with PMH of transitional Cell CA s/p Rt nephrectomy on 09/05/19, HTN, and AFIB presents with c/o fever, dysuria, and vomiting Complicated UTI Transitional Cell CA s/p total Rt nephrectomy HTN AFIB continue abx await for identification of the organisms
[2019-09-27] MEDS ORDERED: DEXTROSE 5%-WATER - 50 ML IVPB ONE ×3 (01:11→17:54)
[2019-09-27] MEDS ORDERED: PIPERACILLIN/TAZOBACTAM 3.375 GM VIAL IVPB ONE ×3 (01:11→17:54)
[2019-09-27] MEDS: PIPERACILLIN/TAZOB 3.375 GM 3.375 GM in DEXTROSE 5%-WATER - 50 ML IVPB SCH ×3 (01:13→18:18)
[2019-09-27 08:34] LABS: BASO % 0.3 % (0-2.0); HEMATOCRIT 38.1 % (35.4-49); HEMOGLOBIN 12.6 GM/dl (11.7-16.9); MCH 32.9 pg (25.7-33.7); MEAN CELL VOLUME 99.7 fl (80-96); MEAN PLT VOLUME 7.6 fl (7.5-11.1); NEUT % 68.7 % (42.8-82.8); PLATELET COUNT 294 K/MM3 (134-434); RBC 3.82 M/mm3 (4.00-5.60); RDW 12.7 % (11.9-15.9); WHITE BLOOD COUNT 5.8 K/mm3 (4.0-10.8)
[2019-09-27 08:41] LABS: ALBUMIN 3.1 g/dl (3.4-5.0); BILIRUBIN,TOTAL 1.1 mg/dl (0.2-1); CALCIUM 8.3 mg/dl (8.5-10); CREATININE 1.3 mg/dl (0.55-1.3); POTASSIUM 3.8 mmol/L (3.5-5.1); TOT PROT 5.7 g/dl (6.4-8.2)
--- NOTE | 2019-09-27 09:05 | PN ---
Physical Exam: SUBJECTIVE: Patient seen and examined, patient ambulating around his room. Denies fever, sweats, chills. Denies dysuria, hematuria. OBJECTIVE: Vital Signs Period Temp Pulse Resp BP Sys/Garcia Pulse Ox Last 24 Hr 98.1 F-98.7 F 73-94 17-18 125-148/64-82 98-100 GENERAL: The patient is awake, alert, and fully oriented, in no acute distress. LUNGS: Breath sounds equal, clear to auscultation bilaterally, no wheezes, no crackles, no accessory muscle use. HEART: Regular rate and rhythm, S1, S2 without murmur, rub or gallop. ABDOMEN: Soft, nontender, nondistended EXTREMITIES: 2+ pulses, warm, well-perfused, no edema. NEUROLOGICAL: Cranial nerves II through XII grossly intact. Normal speech, stead y gait. Laboratory Results - last 24 hr 09/27/19 09/27/19 07:16 07:16 WBC 5.8 RBC 3.82 L Hgb 12.6 Hct 38.1 MCV 99.7 H MCH 32.9 MCHC 33.0 RDW 12.7 Plt Count 294 MPV 7.6 Absolute Neuts (auto) 4.0 Neutrophils % 68.7 Lymphocytes % 17.0 Monocytes % 10.0 Eosinophils % 4.0 D Basophils % 0.3 Sodium 137 Potassium 3.8 Chloride 105 Carbon Dioxide 25 Anion Gap 7 L BUN 12.0 Creatinine 1.3 Est GFR (CKD-EPI)AfAm 60.15 Est GFR (CKD-EPI)NonAf 51.90 Random Glucose 124 H Calcium 8.3 L Total Bilirubin 1.1 H AST 39 H ALT 66 H Alkaline Phosphatase 113 Total Protein 5.7 L Albumin 3.1 L Active Medications Generic Name Dose Route Start Last Admin Trade Name Freq PRN Reason Stop Dose Admin Acetaminophen 650 mg 09/24/19 18:33 09/25/19 06:15 Tylenol - PO 650 mg Q6H PRN Administration FEVER Amlodipine Besylate 5 mg 09/25/19 10:00 09/26/19 10:16 Norvasc - PO 5 mg DAILY LISBETH Administration Apixaban 5 mg 09/24/19 22:00 09/26/19 21:41 Eliquis - PO 5 mg BID LISBETH Administration Sodium Chloride 1,000 mls @ 100 mls/hr 09/24/19 18:45 09/25/19 18:53 Normal Saline - IV 100 mls/hr ASDIR LISBETH Administration Famotidine/Sodium Chloride 20 mg in 50 mls @ 100 mls/hr 09/25/19 10:00 09/26/19 10:26 Pepcid 20 Mg Premixed Ivpb - IVPB 100 mls/hr DAILY LISBETH Administration Piperacillin Sod/Tazobactam 50 mls @ 100 mls/hr 09/25/19 12:30 09/27/19 01:13 Sod 3.375 gm/ Dextrose IVPB 100 mls/hr Q8H-IV LISBETH Administration Protocol Ondansetron HCl 4 mg 09/24/19 18:35 Zofran Injection IVPUSH Q6H PRN NAUSEA Tamsulosin HCl 0.4 mg 09/25/19 08:30 09/26/19 10:05 Flomax - PO 0.4 mg DAILY@0830 LISBETH Administration Microbiology 09/24/19 13:58 Urine - Urine Clean Catch Urine Culture - Final Enterococcus Faecalis Acinetobacter Baumannii/Haemol 09/24/19 14:16 Blood - Peripheral Venous Blood Culture - Preliminary NO GROWTH OBTAINED AFTER 48 HOURS, INCUBATION TO CONTINUE FOR 3 DAYS. 09/24/19 14:10 Blood - Peripheral Venous Blood Culture - Preliminary NO GROWTH OBTAINED AFTER 48 HOURS, INCUBATION TO CONTINUE FOR 3 DAYS. PCP: Dr. Kent Microbiology ASSESSMENT/PLAN 79 year-old male with a PMH significant for aflutter on Eliquis, transitional cell carcinoma of the right kidney s/p right total nephrectomy on 09/05/19 at [facility]. Admitted for sepsis likely secondary to pyelonephritis. Sepsis likely secondary to pyelonephritis --T 101.5, WBC 16.0k, pyuria present on admission; lactic acid wnl --has been afebrile for 72 hours, leukocytosis has resolved --urine culture (+) Enterococcus >100k, Acinetobacter <10k --continue Zosyn (day #3) --ID following Transitional cell carcinoma s/p right total nephrectomy --renal function stable Aflutter with variable AV block --continue amlodipine --continue Eliquis Dilated common bile duct Lesion right lobe liver --seen on 09/23 CT, will get US --AST/ALT very mildly elevated, continue to monitor FEN Fluids: PO intake adequate Electrolytes: replete as indicated Nutrition: low sodium DVT prophylaxis: on Eliquis Physical therapy Dispo: continues to require inpatient care. Full code. Visit type - Emergency Visit Emergency Visit: Yes ED Registration Date: 09/24/19 Care time: The patient presented to the Emergency Department on the above date and was hospitalized for further evaluation of their emergent condition. - New Patient This patient is new to me today: Yes Date on this admission: 09/27/19 - Critical Care Critical Care patient: No - Medication Review Med list reviewed for High Risk Meds patients 65 and older: Yes
[2019-09-27] MEDS: APIXABAN 5 MG TABLET PO SCH ×2 (09:36→21:27)
[2019-09-27] MEDS: TAMSULOSIN HCL 0.4 MG CAP PO SCH (09:37)
[2019-09-27] MEDS: FAMOTIDINE 20 MG/50 ML IVPB 20 MG/50 ML MG IVPB SCH (09:38)
[2019-09-27] MEDS: amLODIPine BESYLATE 5 MG TABLET (FP) PO SCH (09:38)
--- NOTE | 2019-09-27 13:08 | PN ---
Progress Note, Physician - Current Medication List Current Medications: Active Medications Acetaminophen (Tylenol -) 650 mg PO Q6H PRN PRN Reason: FEVER Last Admin: 09/25/19 06:15 Dose: 650 mg Documented by: Amlodipine Besylate (Norvasc -) 5 mg PO DAILY [facility] Last Admin: 09/27/19 09:38 Dose: 5 mg Documented by: Apixaban (Eliquis -) 5 mg PO BID [facility] Last Admin: 09/27/19 09:36 Dose: 5 mg Documented by: Sodium Chloride (Normal Saline -) 1,000 mls @ 100 mls/hr IV ASDIR [facility] Last Admin: 09/25/19 18:53 Dose: 100 mls/hr Documented by: Famotidine/Sodium Chloride (Pepcid 20 Mg Premixed Ivpb -) 20 mg in 50 mls @ 100 mls/hr IVPB DAILY [facility] Last Admin: 09/27/19 09:38 Dose: 100 mls/hr Documented by: Piperacillin Sod/Tazobactam (Sod 3.375 gm/ Dextrose) 50 mls @ 100 mls/hr IVPB Q8H-IV LISBETH; Protocol Last Admin: 09/27/19 09:38 Dose: 100 mls/hr Documented by: Ondansetron HCl (Zofran Injection) 4 mg IVPUSH Q6H PRN PRN Reason: NAUSEA Tamsulosin HCl (Flomax -) 0.4 mg PO DAILY@0830 [facility] Last Admin: 09/27/19 09:37 Dose: 0.4 mg Documented by: - Objective Vital Signs: Vital Signs Temperature 98.6 F 09/27/19 09:28 Pulse Rate 85 09/27/19 09:28 Respiratory Rate 18 09/27/19 09:28 Blood Pressure 142/82 09/27/19 09:28 O2 Sat by Pulse Oximetry (%) 98 09/27/19 09:28 Labs: CBC, BMP 09/27/19 07:16 09/27/19 07:16
[2019-09-28] MEDS ORDERED: PIPERACILLIN/TAZOBACTAM 3.375 GM VIAL IVPB ONE ×3 (01:14→17:55)
[2019-09-28] MEDS ORDERED: DEXTROSE 5%-WATER - 50 ML IVPB ONE ×3 (01:14→17:55)
[2019-09-28] MEDS: PIPERACILLIN/TAZOB 3.375 GM 3.375 GM in DEXTROSE 5%-WATER - 50 ML IVPB SCH ×3 (01:47→18:02)
--- NOTE | 2019-09-28 07:32 | PN ---
Physical Exam: SUBJECTIVE: Patient seen and examined. Has been having night sweats. OBJECTIVE: Vital Signs Period Temp Pulse Resp BP Sys/Garcia Pulse Ox Last 24 Hr 97.6 F-98.6 F 76-105 18-18 113-168/72-104 98-100 GENERAL: The patient is awake, alert, and fully oriented, in no acute distress. LUNGS: Breath sounds equal, clear to auscultation bilateray, no wheezes, no crackles, no accessory muscle use. HEART: Regular rate and rhythm, S1, S2 without murmur, rub or gallop. ABDOMEN: Soft, nontender, nondistended; well-healed LLQ surgical incision, well- healed portal incisions EXTREMITIES: 2+ pulses, warm, well-perfused, no edema. NEUROLOGICAL: Cranial nerves II through XII grossly intact. Normal speech, keri kayode gait. Laboratory Results - last 24 hr 09/27/19 09/27/19 07:16 07:16 WBC 5.8 RBC 3.82 L Hgb 12.6 Hct 38.1 MCV 99.7 H MCH 32.9 MCHC 33.0 RDW 12.7 Plt Count 294 MPV 7.6 Absolute Neuts (auto) 4.0 Neutrophils % 68.7 Lymphocytes % 17.0 Monocytes % 10.0 Eosinophils % 4.0 D Basophils % 0.3 Sodium 137 Potassium 3.8 Chloride 105 Carbon Dioxide 25 Anion Gap 7 L BUN 12.0 Creatinine 1.3 Est GFR (CKD-EPI)AfAm 60.15 Est GFR (CKD-EPI)NonAf 51.90 Random Glucose 124 H Calcium 8.3 L Total Bilirubin 1.1 H AST 39 H ALT 66 H Alkaline Phosphatase 113 Total Protein 5.7 L Albumin 3.1 L Active Medications Generic Name Dose Route Start Last Admin Trade Name Freq PRN Reason Stop Dose Admin Acetaminophen 650 mg 09/24/19 18:33 09/25/19 06:15 Tylenol - PO 650 mg Q6H PRN Administration FEVER Amlodipine Besylate 5 mg 09/25/19 10:00 09/27/19 09:38 Norvasc - PO 5 mg DAILY [facility] Administration Apixaban 5 mg 09/24/19 22:00 09/27/19 21:27 Eliquis - PO 5 mg BID [facility] Administration Sodium Chloride 1,000 mls @ 100 mls/hr 09/24/19 18:45 09/25/19 18:53 Normal Saline - IV 100 mls/hr ASDIR [facility] Administration Famotidine/Sodium Chloride 20 mg in 50 mls @ 100 mls/hr 09/25/19 10:00 09/27/19 09:38 Pepcid 20 Mg Premixed Ivpb - IVPB 100 mls/hr DAILY [facility] Administration Piperacillin Sod/Tazobactam 50 mls @ 100 mls/hr 09/25/19 12:30 09/28/19 01:47 Sod 3.375 gm/ Dextrose IVPB 100 mls/hr Q8H-IV [facility] Administration Protocol Ondansetron HCl 4 mg 09/24/19 18:35 Zofran Injection IVPUSH Q6H PRN NAUSEA Tamsulosin HCl 0.4 mg 09/25/19 08:30 09/27/19 09:37 Flomax - PO 0.4 mg DAILY@0830 [facility] Administration Microbiology 09/24/19 13:58 Urine - Urine Clean Catch Urine Culture - Final Enterococcus Faecalis Acinetobacter Baumannii/Haemol 09/24/19 14:16 Blood - Peripheral Venous Blood Culture - Preliminary NO GROWTH OBTAINED AFTER 48 HOURS, INCUBATION TO CONTINUE FOR 3 DAYS. 09/24/19 14:10 Blood - Peripheral Venous Blood Culture - Preliminary NO GROWTH OBTAINED AFTER 48 HOURS, INCUBATION TO CONTINUE FOR 3 DAYS. PCP: Dr. Kent Urological surgeon: Dr. 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 Admitted for sepsis likely secondary to pyelonephritis. Sepsis likely secondary to pyelonephritis --T 101.5, WBC 16.0k, pyuria present on admission; lactic acid wnl --has been afebrile for > 72 hours, leukocytosis has resolved --urine culture (+) Enterococcus >100k, Acinetobacter <10k --continue Zosyn (day #4) --ID following Transitional cell carcinoma s/p right total nephrectomy --no chemo, no radiation indicated; scheduled for full body CT in December --renal function stable Aflutter with variable AV block --continue amlodipine --continue Eliquis --follows with Dr. River Smith, business systems advisor, [place]; last seen August 2019 Dilated common bile duct --seen on 09/23 CT --US: 8mm CBD which is WNL for age Hepatic cysts --seen on US, patient states this is not new --AST/ALT very mildly elevated, continue to monitor FEN Fluids: PO intake adequate Electrolytes: replete as indicated Nutrition: low sodium DVT prophylaxis: on Eliquis Physical therapy Dispo: continues to require inpatient care. Full code. Visit type - Emergency Visit Emergency Visit: Yes ED Registration Date: 09/24/19 Care time: The patient presented to the Emergency Department on the above date and was hospitalized for further evaluation of their emergent condition. - New Patient This patient is new to me today: No - Critical Care Critical Care patient: No - Medication Review Med list reviewed for High Risk Meds patients 65 and older: Yes
[2019-09-28] MEDS: amLODIPine BESYLATE 5 MG TABLET (FP) PO SCH (09:34)
[2019-09-28] MEDS: FAMOTIDINE 20 MG/50 ML IVPB 20 MG/50 ML MG IVPB SCH (09:34)
[2019-09-28] MEDS: APIXABAN 5 MG TABLET PO SCH ×2 (09:34→21:12)
[2019-09-28] MEDS: TAMSULOSIN HCL 0.4 MG CAP PO SCH (09:34)
--- NOTE | 2019-09-28 13:28 | PN ---
Progress Note, Physician - Current Medication List Current Medications: Active Medications Acetaminophen (Tylenol -) 650 mg PO Q6H PRN PRN Reason: FEVER Last Admin: 09/25/19 06:15 Dose: 650 mg Documented by: Amlodipine Besylate (Norvasc -) 5 mg PO DAILY [facility] Last Admin: 09/28/19 09:34 Dose: 5 mg Documented by: Apixaban (Eliquis -) 5 mg PO BID [facility] Last Admin: 09/28/19 09:34 Dose: 5 mg Documented by: Sodium Chloride (Normal Saline -) 1,000 mls @ 100 mls/hr IV ASDIR [facility] Last Admin: 09/25/19 18:53 Dose: 100 mls/hr Documented by: Famotidine/Sodium Chloride (Pepcid 20 Mg Premixed Ivpb -) 20 mg in 50 mls @ 100 mls/hr IVPB DAILY [facility] Last Admin: 09/28/19 09:34 Dose: 100 mls/hr Documented by: Piperacillin Sod/Tazobactam (Sod 3.375 gm/ Dextrose) 50 mls @ 100 mls/hr IVPB Q8H-IV [facility]; Protocol Last Admin: 09/28/19 09:35 Dose: 100 mls/hr Documented by: Ondansetron HCl (Zofran Injection) 4 mg IVPUSH Q6H PRN PRN Reason: NAUSEA Tamsulosin HCl (Flomax -) 0.4 mg PO DAILY@0830 [facility] Last Admin: 09/28/19 09:34 Dose: 0.4 mg Documented by: - Objective Vital Signs: Vital Signs Temperature 97.9 F 09/28/19 09:49 Pulse Rate 88 09/28/19 09:49 Respiratory Rate 18 09/28/19 09:49 Blood Pressure 153/71 09/28/19 09:49 O2 Sat by Pulse Oximetry (%) 100 09/28/19 09:49 Labs: CBC, BMP 09/27/19 07:16 09/27/19 07:16
[2019-09-28] MEDS ORDERED: LOCK ITEM NR ONE (20:40)
[2019-09-29] MEDS ORDERED: PIPERACILLIN/TAZOBACTAM 3.375 GM VIAL IVPB ONE ×3 (01:00→16:16)
[2019-09-29] MEDS ORDERED: DEXTROSE 5%-WATER - 50 ML IVPB ONE ×3 (01:01→16:16)
[2019-09-29] MEDS: PIPERACILLIN/TAZOB 3.375 GM 3.375 GM in DEXTROSE 5%-WATER - 50 ML IVPB SCH ×3 (01:19→18:32)
[2019-09-29] MEDS: TAMSULOSIN HCL 0.4 MG CAP PO SCH (08:05)
[2019-09-29 08:15] LABS: ALBUMIN 3.4 g/dl (3.4-5.0); BILIRUBIN,TOTAL 1.1 mg/dl (0.2-1); CALCIUM 9.1 mg/dl (8.5-10); CREATININE 1.4 mg/dl (0.55-1.3); MAGNESIUM 2.1 mg/dL (1.8-2.4); POTASSIUM 4.4 mmol/L (3.5-5.1); TOT PROT 6.3 g/dl (6.4-8.2)
[2019-09-29 08:21] LABS: BASO % 0.6 % (0-2.0); EOS % 4.2 % (0-4.5); HEMATOCRIT 42.6 % (35.4-49); HEMOGLOBIN 13.8 GM/dl (11.7-16.9); LYMPH % 26.7 % (8-40); MCH 32.6 pg (25.7-33.7); MCHC 32.4 g/dl (32.0-35.9); MEAN CELL VOLUME 100.5 fl (80-96); MEAN PLT VOLUME 7.6 fl (7.5-11.1); MONO % 10.2 % (3.8-10.2); NEUT % 58.3 % (42.8-82.8); PLATELET COUNT 372 K/MM3 (134-434); RBC 4.24 M/mm3 (4.00-5.60); RDW 13.3 % (11.9-15.9); WHITE BLOOD COUNT 5.8 K/mm3 (4.0-10.8)
[2019-09-29] MEDS: FAMOTIDINE 20 MG/50 ML IVPB 20 MG/50 ML MG IVPB SCH (09:43)
[2019-09-29] MEDS: APIXABAN 5 MG TABLET PO SCH ×2 (09:44→21:23)
[2019-09-29] MEDS: amLODIPine BESYLATE 5 MG TABLET (FP) PO SCH (09:44)
--- NOTE | 2019-09-29 12:00 | PN ---
Physical Exam: SUBJECTIVE: Patient seen and examined. Feels quite well. Ambulating in hallway. OBJECTIVE: Vital Signs Period Temp Pulse Resp BP Sys/Garcia Pulse Ox Last 24 Hr 97.8 F-98.7 F 71-86 17-18 132-152/72-88 95-100 GENERAL: The patient is awake, alert, and fully oriented, in no acute distress. LUNGS: Breath sounds equal, clear to auscultation bilateray, no wheezes, no crackles, no accessory muscle use. HEART: Regular rate and rhythm, S1, S2 without murmur, rub or gallop. ABDOMEN: Soft, nontender, nondistended; well-healed LLQ surgical incision, well- healed portal incisions EXTREMITIES: 2+ pulses, warm, well-perfused, no edema. NEUROLOGICAL: Cranial nerves II through XII grossly intact. Normal speech, steady gait. Laboratory Results - last 24 hr 09/29/19 09/29/19 09/29/19 07:17 07:17 07:17 WBC 5.8 RBC 4.24 Hgb 13.8 Hct 42.6 MCV 100.5 H MCH 32.6 MCHC 32.4 RDW 13.3 Plt Count 372 D MPV 7.6 Absolute Neuts (auto) 3.4 Neutrophils % 58.3 Lymphocytes % 26.7 D Monocytes % 10.2 Eosinophils % 4.2 Basophils % 0.6 PTT (Actin FS) 32.2 Sodium 138 Potassium 4.4 Chloride 103 Carbon Dioxide 23 Anion Gap 12 BUN 14.0 Creatinine 1.4 H Est GFR (CKD-EPI)AfAm 54.99 Est GFR (CKD-EPI)NonAf 47.45 Random Glucose 150 H Calcium 9.1 Magnesium 2.1 Total Bilirubin 1.1 H AST 26 ALT 56 Alkaline Phosphatase 119 H Total Protein 6.3 L Albumin 3.4 Active Medications Generic Name Dose Route Start Last Admin Trade Name Freq PRN Reason Stop Dose Admin Acetaminophen 650 mg 09/24/19 18:33 09/25/19 06:15 Tylenol - PO 650 mg Q6H PRN Administration FEVER Amlodipine Besylate 5 mg 09/25/19 10:00 09/29/19 09:44 Norvasc - PO 5 mg DAILY [facility] Administration Apixaban 5 mg 09/24/19 22:00 09/29/19 09:44 Eliquis - PO 5 mg BID [facility] Administration Piperacillin Sod/Tazobactam 50 mls @ 100 mls/hr 09/25/19 12:30 09/29/19 09:44 Sod 3.375 gm/ Dextrose IVPB 100 mls/hr Q8H-IV [facility] Administration Protocol Tamsulosin HCl 0.4 mg 09/25/19 08:30 09/29/19 08:05 Flomax - PO 0.4 mg DAILY@0830 [facility] Administration ASSESSMENT/PLAN: Microbiology 09/24/19 13:58 Urine - Urine Clean Catch Urine Culture - Final Enterococcus Faecalis Acinetobacter Baumannii/Haemol 09/24/19 14:16 Blood - Peripheral Venous Blood Culture - Preliminary NO GROWTH OBTAINED AFTER 48 HOURS, INCUBATION TO CONTINUE FOR 3 DAYS. 09/24/19 14:10 Blood - Peripheral Venous Blood Culture - Preliminary NO GROWTH OBTAINED AFTER 48 HOURS, INCUBATION TO CONTINUE FOR 3 DAYS. PCP: Dr. Kent Urological surgeon: Dr. 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 Admitted for sepsis likely secondary to pyelonephritis. Sepsis likely secondary to pyelonephritis --T 101.5, WBC 16.0k, pyuria present on admission; lactic acid wnl --afebrile since 09/23, leukocytosis has resolved --urine culture (+) Enterococcus >100k, Acinetobacter <10k --continue Zosyn (day #5) --ID following; will need 7 days IV therapy, then assess for discharge meds Transitional cell carcinoma s/p right total nephrectomy --no chemo, no radiation; scheduled for full body CT in December Mildly elevated creatinine --Cr 1.4 today --urine studies ordered --US renal ordered Aflutter with variable AV block --continue amlodipine --continue Eliquis --follows with Dr. River Smith, manager behavioral, [place]; last seen August 2019 Dilated common bile duct --seen on 09/23 CT --US: 8mm CBD which is WNL for age Hepatic cysts --seen on US, patient states this is not new --Alk phos mildly elevated, continue to monitor FEN Fluids: PO intake adequate Electrolytes: replete as indicated Nutrition: low sodium DVT prophylaxis: on Eliquis Physical therapy Dispo: continues to require inpatient care. Full code. Visit type - Emergency Visit Emergency Visit: Yes ED Registration Date: 09/24/19 Care time: The patient presented to the Emergency Department on the above date and was hospitalized for further evaluation of their emergent condition. - New Patient This patient is new to me today: No - Critical Care Critical Care patient: No - Medication Review Med list reviewed for High Risk Meds patients 65 and older: Yes (protonix discontinued)
[2019-09-29 14:34] LABS: CREATININE, URINE RANDOM 13.8 mg/dL
--- NOTE | 2019-09-29 15:09 | PN ---
Progress Note, Physician - Current Medication List Current Medications: Active Medications Acetaminophen (Tylenol -) 650 mg PO Q6H PRN PRN Reason: FEVER Last Admin: 09/25/19 06:15 Dose: 650 mg Documented by: Amlodipine Besylate (Norvasc -) 5 mg PO DAILY [facility] Last Admin: 09/29/19 09:44 Dose: 5 mg Documented by: Apixaban (Eliquis -) 5 mg PO BID [facility] Last Admin: 09/29/19 09:44 Dose: 5 mg Documented by: Piperacillin Sod/Tazobactam (Sod 3.375 gm/ Dextrose) 50 mls @ 100 mls/hr IVPB Q8H-IV [facility]; Protocol Last Admin: 09/29/19 09:44 Dose: 100 mls/hr Documented by: Tamsulosin HCl (Flomax -) 0.4 mg PO DAILY@0830 [facility] Last Admin: 09/29/19 08:05 Dose: 0.4 mg Documented by: - Objective Vital Signs: Vital Signs Temperature 97.6 F 09/29/19 14:00 Pulse Rate 74 09/29/19 14:00 Respiratory Rate 18 09/29/19 14:00 Blood Pressure 151/83 09/29/19 14:00 O2 Sat by Pulse Oximetry (%) 100 09/29/19 14:00 Labs: CBC, BMP 09/29/19 07:17 09/29/19 07:17
[2019-09-29 16:09] LABS: CREATININE, URINE RANDOM < 13.0 mg/dL (30-150)
[2019-09-30] MEDS ORDERED: PIPERACILLIN/TAZOBACTAM 3.375 GM VIAL IVPB ONE ×3 (00:21→17:28)
[2019-09-30] MEDS ORDERED: DEXTROSE 5%-WATER - 50 ML IVPB ONE ×3 (00:22→17:28)
[2019-09-30] MEDS: PIPERACILLIN/TAZOB 3.375 GM 3.375 GM in DEXTROSE 5%-WATER - 50 ML IVPB SCH ×3 (01:24→17:49)
--- NOTE | 2019-09-30 08:11 | PN ---
Physical Exam: SUBJECTIVE: Patient seen and examined. Ambulates independently and frequently in hallway. Voices no complaints. OBJECTIVE: Vital Signs Period Temp Pulse Resp BP Sys/Garcia Pulse Ox Last 24 Hr 97.6 F-98.7 F 71-88 16-18 120-151/70-83 99-100 GENERAL: The patient is awake, alert, and fully oriented, in no acute distress. LUNGS: Breath sounds equal, clear to auscultation bilaterally, no wheezes, no crackles, no accessory muscle use. HEART: Regular rate and rhythm, S1, S2 without murmur, rub or gallop. ABDOMEN: Soft, nontender, nondistended. EXTREMITIES: 2+ pulses, warm, well-perfused, no edema. NEUROLOGICAL: Cranial nerves II through XII grossly intact. Normal speech, steady gait Laboratory Results - last 24 hr 09/29/19 09/29/19 09/29/19 07:17 07:17 07:17 WBC 5.8 RBC 4.24 Hgb 13.8 Hct 42.6 MCV 100.5 H MCH 32.6 MCHC 32.4 RDW 13.3 Plt Count 372 D MPV 7.6 Absolute Neuts (auto) 3.4 Neutrophils % 58.3 Lymphocytes % 26.7 D Monocytes % 10.2 Eosinophils % 4.2 Basophils % 0.6 PTT (Actin FS) 32.2 Sodium 138 Potassium 4.4 Chloride 103 Carbon Dioxide 23 Anion Gap 12 BUN 14.0 Creatinine 1.4 H Est GFR (CKD-EPI)AfAm 54.99 Est GFR (CKD-EPI)NonAf 47.45 Random Glucose 150 H Calcium 9.1 Magnesium 2.1 Total Bilirubin 1.1 H AST 26 ALT 56 Alkaline Phosphatase 119 H Total Protein 6.3 L Albumin 3.4 Urine Color Urine Appearance Urine pH Urine Protein Urine Glucose (UA) Urine Ketones Urine Blood Urine Nitrite Urine Bilirubin Urine Urobilinogen Ur Leukocyte Esterase Urine RBC Ur Random Creatinine U Random Total Protein Ur Random Sodium Protein/Creatinin Ratio 09/29/19 09/29/19 09/29/19 14:00 14:00 14:00 WBC RBC Hgb Hct MCV MCH MCHC RDW Plt Count MPV Absolute Neuts (auto) Neutrophils % Lymphocytes % Monocytes % Eosinophils % Basophils % PTT (Actin FS) Sodium Potassium Chloride Carbon Dioxide Anion Gap BUN Creatinine Est GFR (CKD-EPI)AfAm Est GFR (CKD-EPI)NonAf Random Glucose Calcium Magnesium Total Bilirubin AST ALT Alkaline Phosphatase Total Protein Albumin Urine Color Yellow Urine Appearance Clear Urine pH 6.0 Urine Protein Negative Urine Glucose (UA) Negative Urine Ketones Negative Urine Blood Trace-intact Urine Nitrite Negative Urine Bilirubin Negative Urine Urobilinogen 0.2 Ur Leukocyte Esterase Negative Urine RBC Rare Ur Random Creatinine < 13.0 L 13.8 U Random Total Protein < 5.0 Ur Random Sodium 44 Protein/Creatinin Ratio 0.0 Active Medications Generic Name Dose Route Start Last Admin Trade Name Freq PRN Reason Stop Dose Admin Acetaminophen 650 mg 09/24/19 18:33 09/25/19 06:15 Tylenol - PO 650 mg Q6H PRN Administration FEVER Amlodipine Besylate 5 mg 09/25/19 10:00 09/29/19 09:44 Norvasc - PO 5 mg DAILY [facility] Administration Apixaban 5 mg 09/24/19 22:00 09/29/19 21:23 Eliquis - PO 5 mg BID [facility] Administration Piperacillin Sod/Tazobactam 50 mls @ 100 mls/hr 09/25/19 12:30 09/30/19 01:24 Sod 3.375 gm/ Dextrose IVPB 100 mls/hr Q8H-IV [facility] Administration Protocol Tamsulosin HCl 0.4 mg 09/25/19 08:30 09/29/19 08:05 Flomax - PO 0.4 mg DAILY@0830 [facility] Administration 09/24/19 13:58 Urine - Urine Clean Catch Urine Culture - Final Enterococcus Faecalis Acinetobacter Baumannii/Haemol 09/24/19 14:16 Blood - Peripheral Venous Blood Culture - Preliminary NO GROWTH OBTAINED AFTER 48 HOURS, INCUBATION TO CONTINUE FOR 3 DAYS. 09/24/19 14:10 Blood - Peripheral Venous Blood Culture - Preliminary NO GROWTH OBTAINED AFTER 48 HOURS, INCUBATION TO CONTINUE FOR 3 DAYS. PCP: Dr. Kent Urological surgeon: Dr. 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 Admitted for sepsis likely secondary to pyelonephritis. Sepsis likely secondary to pyelonephritis --T 101.5, WBC 16.0k, pyuria present on admission; lactic acid wnl --afebrile since 09/23, leukocytosis has resolved --urine culture (+) Enterococcus >100k, Acinetobacter <10k --continue Zosyn (day #6) --ID following: give last dose Zosyn on Thursday morning, then can discharge on augmentin X 7 days (check CrCl) Transitional cell carcinoma s/p right total nephrectomy --no chemo, no radiation; scheduled for full body CT in December Mildly elevated creatinine --Cr 1.4 Aflutter with variable AV block --continue amlodipine --continue Eliquis --follows with Dr. River Smith, probation supervisor, [place]; last seen August 2019 Dilated common bile duct --seen on 09/23 CT --US: 8mm CBD which is WNL for age --LFTs wnl Hepatic cysts --seen on US, patient states this is not new FEN Fluids: PO intake adequate Electrolytes: replete as indicated Nutrition: low sodium DVT prophylaxis: on Eliquis Physical therapy Dispo: continues to require inpatient care. Full code. Visit type - Emergency Visit Emergency Visit: Yes ED Registration Date: 09/24/19 Care time: The patient presented to the Emergency Department on the above date and was hospitalized for further evaluation of their emergent condition. - New Patient This patient is new to me today: No - Critical Care Critical Care patient: No - Medication Review Med list reviewed for High Risk Meds patients 65 and older: Yes
[2019-09-30 08:24] LABS: BASO % 0.5 % (0-2.0); HEMATOCRIT 38.9 % (35.4-49); HEMOGLOBIN 13.1 GM/dl (11.7-16.9); LYMPH % 19.8 % (8-40); MCH 34.2 pg (25.7-33.7); MCHC 33.8 g/dl (32.0-35.9); MEAN CELL VOLUME 101.1 fl (80-96); MEAN PLT VOLUME 7.5 fl (7.5-11.1); MONO % 7.9 % (3.8-10.2); NEUT % 67.8 % (42.8-82.8); PLATELET COUNT 323 K/MM3 (134-434); RBC 3.84 M/mm3 (4.00-5.60); RDW 13.1 % (11.9-15.9); WHITE BLOOD COUNT 6.2 K/mm3 (4.0-10.8)
[2019-09-30 08:33] LABS: ALBUMIN 3.3 g/dl (3.4-5.0); BILIRUBIN,TOTAL 0.7 mg/dl (0.2-1); CALCIUM 8.8 mg/dl (8.5-10); CREATININE 1.4 mg/dl (0.55-1.3); MAGNESIUM 2.1 mg/dL (1.8-2.4); TOT PROT 5.9 g/dl (6.4-8.2)
[2019-09-30] MEDS: amLODIPine BESYLATE 5 MG TABLET (FP) PO SCH (09:27)
[2019-09-30] MEDS: APIXABAN 5 MG TABLET PO SCH ×2 (09:27→21:22)
[2019-09-30] MEDS: TAMSULOSIN HCL 0.4 MG CAP PO SCH (09:27)
--- NOTE | 2019-09-30 15:21 | PN ---
Progress Note, Physician History of Present Illness: stable no new issues - Current Medication List Current Medications: Active Medications Acetaminophen (Tylenol -) 650 mg PO Q6H PRN PRN Reason: FEVER Last Admin: 09/25/19 06:15 Dose: 650 mg Documented by: Amlodipine Besylate (Norvasc -) 5 mg PO DAILY [facility] Last Admin: 09/30/19 09:27 Dose: 5 mg Documented by: Apixaban (Eliquis -) 5 mg PO BID [facility] Last Admin: 09/30/19 09:27 Dose: 5 mg Documented by: Piperacillin Sod/Tazobactam (Sod 3.375 gm/ Dextrose) 50 mls @ 100 mls/hr IVPB Q8H-IV [facility]; Protocol Last Admin: 09/30/19 09:27 Dose: 100 mls/hr Documented by: Tamsulosin HCl (Flomax -) 0.4 mg PO DAILY@0830 [facility] Last Admin: 09/30/19 09:27 Dose: 0.4 mg Documented by: - Objective Vital Signs: Vital Signs Temperature 98.9 F 09/30/19 14:24 Pulse Rate 77 09/30/19 14:24 Respiratory Rate 18 09/30/19 14:24 Blood Pressure 135/76 09/30/19 14:24 O2 Sat by Pulse Oximetry (%) 100 09/30/19 14:24 Constitutional: Yes: No Distress, Calm Cardiovascular: Yes: S1, S2 Respiratory: Yes: Regular, CTA Bilaterally Gastrointestinal: Yes: Normal Bowel Sounds, Soft Musculoskeletal: Yes: WNL Extremities: Yes: WNL Neurological: Yes: Alert, Oriented Psychiatric: Yes: Alert, Oriented Labs: CBC, BMP 09/30/19 07:41 09/30/19 07:41 Assessment/Plan Problem List - Problems (1) Transitional cell carcinoma Code(s): C68.9 - MALIGNANT NEOPLASM OF URINARY ORGAN, UNSPECIFIED (2) Complicated UTI (urinary tract infection) Code(s): N39.0 - URINARY TRACT INFECTION, SITE NOT SPECIFIED (3) HTN (hypertension) Code(s): I10 - ESSENTIAL (PRIMARY) HYPERTENSION (4) S/p nephrectomy Code(s): Z90.5 - ACQUIRED ABSENCE OF KIDNEY Assessment/Plan 79 y.o. male with PMH of transitional Cell CA s/p Rt nephrectomy on 09/05/19, HTN, and AFIB presents with c/o fever, dysuria, and vomiting Complicated UTI Transitional Cell CA s/p total Rt nephrectomy HTN AFIB continue abx thursday will change to oral abx rest as per the team
[2019-10-01] MEDS ORDERED: PIPERACILLIN/TAZOBACTAM 3.375 GM VIAL IVPB ONE ×3 (00:30→17:54)
[2019-10-01] MEDS ORDERED: DEXTROSE 5%-WATER - 50 ML IVPB ONE ×3 (00:30→17:54)
[2019-10-01] MEDS: PIPERACILLIN/TAZOB 3.375 GM 3.375 GM in DEXTROSE 5%-WATER - 50 ML IVPB SCH ×3 (01:20→17:56)
[2019-10-01 08:29] LABS: BASO % 0.3 % (0-2.0); EOS % 3.7 % (0-4.5); HEMATOCRIT 43.9 % (35.4-49); HEMOGLOBIN 14.9 GM/dl (11.7-16.9); LYMPH % 25.9 % (8-40); MCH 33.9 pg (25.7-33.7); MCHC 33.9 g/dl (32.0-35.9); MEAN CELL VOLUME 100.1 fl (80-96); MEAN PLT VOLUME 7.6 fl (7.5-11.1); MONO % 8.7 % (3.8-10.2); NEUT % 61.4 % (42.8-82.8); PLATELET COUNT 385 K/MM3 (134-434); RBC 4.38 M/mm3 (4.00-5.60); RDW 13.2 % (11.9-15.9); WHITE BLOOD COUNT 7.8 K/mm3 (4.0-10.8)
[2019-10-01 08:33] LABS: ALBUMIN 3.8 g/dl (3.4-5.0); CALCIUM 9.4 mg/dl (8.5-10); CREATININE 1.4 mg/dl (0.55-1.3); MAGNESIUM 2.2 mg/dL (1.8-2.4); POTASSIUM 4.4 mmol/L (3.5-5.1); TOT PROT 6.6 g/dl (6.4-8.2)
[2019-10-01] MEDS: amLODIPine BESYLATE 5 MG TABLET (FP) PO SCH (09:21)
[2019-10-01] MEDS: APIXABAN 5 MG TABLET PO SCH ×2 (09:21→21:40)
[2019-10-01] MEDS: TAMSULOSIN HCL 0.4 MG CAP PO SCH (09:21)
--- NOTE | 2019-10-01 09:21 | PN ---
Physical Exam: SUBJECTIVE: Patient seen and examined at bedside, denies any fever, chills,cp, sob,palpitations, abdominal pain, N/V/D or urinary symptoms. OBJECTIVE: Vital Signs Period Temp Pulse Resp BP Sys/Garcia Pulse Ox Last 24 Hr 98 F-98.9 F 70-80 16-18 119-136/69-76 96-100 GENERAL: The patient is awake, alert, and fully oriented, in no acute distress. HEAD: Normal with no signs of trauma. EYES: PERRL, extraocular movements intact, sclera anicteric, conjunctiva clear. No ptosis. ENT: Ears normal, nares patent, oropharynx clear without exudates, moist mucous membranes. NECK: Trachea midline, full range of motion, supple. LUNGS: Breath sounds equal, clear to auscultation bilaterally, no wheezes, no crackles, no accessory muscle use. HEART: Regular rate and rhythm, S1, S2 without murmur, rub or gallop. ABDOMEN: Soft, nontender, nondistended, normoactive bowel sounds, no guarding, no rebound, no hepatosplenomegaly, no masses. EXTREMITIES: 2+ pulses, warm, well-perfused, no edema. NEUROLOGICAL: Cranial nerves II through XII grossly intact. Normal speech, gait not observed. PSYCH: Normal mood, normal affect. SKIN: Warm, dry, normal turgor, no rashes or lesions noted Laboratory Results - last 24 hr 10/01/19 10/01/19 07:33 07:33 WBC 7.8 RBC 4.38 Hgb 14.9 Hct 43.9 MCV 100.1 H MCH 33.9 H MCHC 33.9 RDW 13.2 Plt Count 385 MPV 7.6 Absolute Neuts (auto) 4.8 Neutrophils % 61.4 Lymphocytes % 25.9 D Monocytes % 8.7 Eosinophils % 3.7 Basophils % 0.3 Sodium 138 Potassium 4.4 Chloride 102 Carbon Dioxide 23 Anion Gap 13 BUN 15.0 Creatinine 1.4 H Est GFR (CKD-EPI)AfAm 54.99 Est GFR (CKD-EPI)NonAf 47.45 Random Glucose 121 H Calcium 9.4 Magnesium 2.2 Total Bilirubin 1.0 AST 23 ALT 46 Alkaline Phosphatase 112 D Total Protein 6.6 Albumin 3.8 Active Medications Generic Name Dose Route Start Last Admin Trade Name Freq PRN Reason Stop Dose Admin Acetaminophen 650 mg 09/24/19 18:33 09/25/19 06:15 Tylenol - PO 650 mg Q6H PRN Administration FEVER Amlodipine Besylate 5 mg 09/25/19 10:00 09/30/19 09:27 Norvasc - PO 5 mg DAILY [facility] Administration Apixaban 5 mg 09/24/19 22:00 09/30/19 21:22 Eliquis - PO 5 mg BID [facility] Administration Piperacillin Sod/Tazobactam 50 mls @ 100 mls/hr 09/25/19 12:30 10/01/19 01:20 Sod 3.375 gm/ Dextrose IVPB 100 mls/hr Q8H-IV [facility] Administration Protocol Tamsulosin HCl 0.4 mg 09/25/19 08:30 09/30/19 09:27 Flomax - PO 0.4 mg DAILY@0830 [facility] Administration Microbiology 09/24/19 14:16 Blood - Peripheral Venous Blood Culture - Final NO GROWTH AFTER 5 DAYS INCUBATION 09/24/19 14:10 Blood - Peripheral Venous Blood Culture - Final NO GROWTH AFTER 5 DAYS INCUBATION 09/24/19 13:58 Urine - Urine Clean Catch Urine Culture - Final Enterococcus Faecalis Acinetobacter Baumannii/Haemol * IMAGING CxR: No acute lung pathology CT abdomen/ Pelvis: No acute pathology EKG : A-Flutter Renal US: No hydro, left renal simple cyst, no hydro or stones,enlarged prostate Abdominal US: Small likely complex cyst int eh Rt hepatic lobe, measuring 1.5cm , no evidence of stone or cholecystitis ASSESSMENT/PLAN: 79 year-old male with a PMH significant for aflutter on Eliquis, 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 Admitted for sepsis likely secondary to pyelonephritis. PCP: Dr. Kent Urological surgeon: Dr. Vignesh Costello, [place] *Sepsis likely secondary to pyelonephritis -Max T 101.5, WBC 16.0k, pyuria present on admission; lactic acid wnl -afebrile since 09/23, leukocytosis has resolved -urine culture (+) Enterococcus >100k, Acinetobacter <10k -continue Zosyn (day #7) -ID following: give last dose Zosyn on Thursday morning, then can discharge on augmentin X 7 days (check CrCl) *Transitional cell carcinoma s/p right total nephrectomy -no chemo, no radiation; scheduled for full body CT in December *Mildly elevated creatinine -Cr 1.4 *Aflutter with variable AV block -continue amlodipine, Eliquis -follows with Dr. River Smith, onsite health coach, [place]; last seen August 2019 *Dilated common bile duct-seen on 09/23 CT -US: 8mm CBD which is WNL for age -LFTs wnl - asymptomatic *Hepatic cysts -seen on US, pt reports known hx of hepatic cyst FEN Fluids: PO intake adequate Electrolytes: replete as indicated Nutrition: low sodium DVT prophylaxis: on Eliquis Physical therapy Covid Negative Dispo: Anticipate DC home in AM. Visit type - Emergency Visit Emergency Visit: Yes ED Registration Date: 09/24/19 Care time: The patient presented to the Emergency Department on the above date and was hospitalized for further evaluation of their emergent condition. - New Patient This patient is new to me today: No - Critical Care Critical Care patient: No - Discharge Referral Referred to [facility] No - Medication Review Med list reviewed for High Risk Meds patients 65 and older: Yes
--- NOTE | 2019-10-01 14:40 | PN ---
Progress Note, Physician History of Present Illness: stable no new issues - Current Medication List Current Medications: Active Medications Acetaminophen (Tylenol -) 650 mg PO Q6H PRN PRN Reason: FEVER Last Admin: 09/25/19 06:15 Dose: 650 mg Documented by: Amlodipine Besylate (Norvasc -) 5 mg PO DAILY [facility] Last Admin: 10/01/19 09:21 Dose: 5 mg Documented by: Apixaban (Eliquis -) 5 mg PO BID [facility] Last Admin: 10/01/19 09:21 Dose: 5 mg Documented by: Piperacillin Sod/Tazobactam (Sod 3.375 gm/ Dextrose) 50 mls @ 100 mls/hr IVPB Q8H-IV [facility]; Protocol Last Admin: 10/01/19 09:21 Dose: 100 mls/hr Documented by: Tamsulosin HCl (Flomax -) 0.4 mg PO DAILY@0830 [facility] Last Admin: 10/01/19 09:21 Dose: 0.4 mg Documented by: - Objective Vital Signs: Vital Signs Temperature 98.3 F 10/01/19 14:00 Pulse Rate 74 10/01/19 14:00 Respiratory Rate 18 10/01/19 14:00 Blood Pressure 131/71 10/01/19 14:00 O2 Sat by Pulse Oximetry (%) 100 10/01/19 14:00 Constitutional: Yes: No Distress, Calm Cardiovascular: Yes: S1, S2 Respiratory: Yes: Regular, CTA Bilaterally Gastrointestinal: Yes: Normal Bowel Sounds, Soft Musculoskeletal: Yes: WNL Extremities: Yes: WNL Neurological: Yes: Alert, Oriented Psychiatric: Yes: Alert, Oriented Labs: CBC, BMP 10/01/19 07:33 10/01/19 07:33 Assessment/Plan Problem List - Problems (1) Transitional cell carcinoma Code(s): C68.9 - MALIGNANT NEOPLASM OF URINARY ORGAN, UNSPECIFIED (2) Complicated UTI (urinary tract infection) Code(s): N39.0 - URINARY TRACT INFECTION, SITE NOT SPECIFIED (3) HTN (hypertension) Code(s): I10 - ESSENTIAL (PRIMARY) HYPERTENSION (4) S/p nephrectomy Code(s): Z90.5 - ACQUIRED ABSENCE OF KIDNEY Assessment/Plan 79 y.o. male with PMH of transitional Cell CA s/p Rt nephrectomy on 09/05/19, HTN, and AFIB presents with c/o fever, dysuria, and vomiting Complicated UTI Transitional Cell CA s/p total Rt nephrectomy HTN AFIB continue abx thursday after morning dose change to oral as planned rest as per the team
[2019-10-02] MEDS ORDERED: PIPERACILLIN/TAZOBACTAM 3.375 GM VIAL IVPB ONE ×2 (01:18→08:56)
[2019-10-02] MEDS ORDERED: DEXTROSE 5%-WATER - 50 ML IVPB ONE ×2 (01:18→08:57)
[2019-10-02] MEDS: PIPERACILLIN/TAZOB 3.375 GM 3.375 GM in DEXTROSE 5%-WATER - 50 ML IVPB SCH ×2 (01:45→09:45)
[2019-10-02 06:21] VITALS: BP 132/83; PULSE 71; TEMP 98.1
[2019-10-02] MEDS ORDERED: REFRIGERATED ANITBIOTICS ONE (08:19)
[2019-10-02] MEDS: amLODIPine BESYLATE 5 MG TABLET (FP) PO SCH (09:44)
[2019-10-02] MEDS: TAMSULOSIN HCL 0.4 MG CAP PO SCH (09:44)
[2019-10-02] MEDS: APIXABAN 5 MG TABLET PO SCH (09:44)
--- NOTE | 2019-10-02 09:54 | DS ---
Physical Exam: SUBJECTIVE: Patient seen and examined at bedside,no complains, eager to go home. OBJECTIVE: Vital Signs Period Temp Pulse Resp BP Sys/Garcia Pulse Ox Last 24 Hr 98.1 F-98.5 F 71-89 18-18 124-133/70-83 99-100 PHYSICAL EXAM GENERAL: The patient is awake, alert, and fully oriented, in no acute distress. HEAD: Normal with no signs of trauma. EYES: PERRL, extraocular movements intact, sclera anicteric, conjunctiva clear. ENT: Ears normal, nares patent, oropharynx clear without exudates, moist mucous membranes. NECK: Trachea midline, full range of motion, supple. LUNGS: Breath sounds equal, clear to auscultation bilaterally, no wheezes, no crackles, no accessory muscle use. HEART: Regular rate and rhythm, S1, S2 without murmur, rub or gallop. ABDOMEN: Soft, nontender, nondistended, normoactive bowel sounds, no guarding, no rebound, no hepatosplenomegaly, no masses. EXTREMITIES: 2+ pulses, warm, well-perfused, no edema. NEUROLOGICAL: Cranial nerves II through XII grossly intact. Normal speech, gait not observed. PSYCH: Normal mood, normal affect. SKIN: Warm, dry, normal turgor, no rashes or lesions noted. Microbiology 09/24/19 14:16 Blood - Peripheral Venous Blood Culture - Final NO GROWTH AFTER 5 DAYS INCUBATION 09/24/19 14:10 Blood - Peripheral Venous Blood Culture - Final NO GROWTH AFTER 5 DAYS INCUBATION 09/24/19 13:58 Urine - Urine Clean Catch Urine Culture - Final Enterococcus Faecalis Acinetobacter Baumannii/Haemol LABS Laboratory Tests 09/24/19 09/24/19 09/24/19 13:58 14:16 14:16 WBC 16.0 H RBC 4.04 Hgb 13.5 Hct 41.0 MCV 101.4 H MCH 33.4 MCHC 33.0 RDW 12.7 Plt Count 237 MPV 7.7 Absolute Neuts (auto) 14.4 Neutrophils % 89.4 H D Neutrophils % (Manual) Lymphocytes % 3.9 L D Lymphocytes % (Manual) Monocytes % 6.5 Monocytes % (Manual) Eosinophils % 0.0 D Basophils % 0.2 Hypochromia Platelet Estimate PTT (Actin FS) 26.7 Sodium Potassium Chloride Carbon Dioxide Anion Gap BUN Creatinine Est GFR (CKD-EPI)AfAm Est GFR (CKD-EPI)NonAf POC Glucometer Random Glucose Hemoglobin A1c % Lactic Acid Calcium Magnesium Total Bilirubin AST ALT Alkaline Phosphatase Total Protein Albumin Urine Color Yellow Urine Appearance Slightly Urine pH 7.0 Urine Protein 2+ H Urine Glucose (UA) Negative Urine Ketones Trace Urine Blood 1+ H Urine Nitrite Negative Urine Bilirubin Negative Urine Urobilinogen 1.0 Ur Leukocyte Esterase 2+ Urine RBC 10-20 Urine WBC 40-60 Ur Transition Epith Cell Rare Urine Bacteria Moderate Ur Random Creatinine U Random Total Protein Ur Random Sodium Protein/Creatinin Ratio COVID-19 ([facility]) 09/24/19 09/24/19 09/24/19 14:16 14:16 14:38 WBC RBC Hgb Hct MCV MCH MCHC RDW Plt Count MPV Absolute Neuts (auto) Neutrophils % Neutrophils % (Manual) Lymphocytes % Lymphocytes % (Manual) Monocytes % Monocytes % (Manual) Eosinophils % Basophils % Hypochromia Platelet Estimate PTT (Actin FS) Sodium 130 L Potassium 3.9 Chloride 100 Carbon Dioxide 22 Anion Gap 8 BUN 17.0 Creatinine 1.3 Est GFR (CKD-EPI)AfAm 60.15 Est GFR (CKD-EPI)NonAf 51.90 POC Glucometer Random Glucose 148 H Hemoglobin A1c % Lactic Acid 1.1 Calcium 8.3 L Magnesium Total Bilirubin 1.1 H AST 41 H ALT 36 Alkaline Phosphatase 86 Total Protein 6.4 Albumin 3.7 Urine Color Urine Appearance Urine pH Urine Protein Urine Glucose (UA) Urine Ketones Urine Blood Urine Nitrite Urine Bilirubin Urine Urobilinogen Ur Leukocyte Esterase Urine RBC Urine WBC Ur Transition Epith Cell Urine Bacteria Ur Random Creatinine U Random Total Protein Ur Random Sodium Protein/Creatinin Ratio COVID-19 ([facility]) Not detected 09/25/19 09/25/19 09/25/19 05:57 06:00 06:00 WBC 15.8 H RBC 3.76 L Hgb 12.4 Hct 37.9 MCV 101.0 H MCH 32.9 MCHC 32.6 RDW 12.9 Plt Count 213 MPV 8.6 D Absolute Neuts (auto) 13.2 Neutrophils % No Result Required. Neutrophils % (Manual) 82.0 Lymphocytes % No Result Required. Lymphocytes % (Manual) 9.0 Monocytes % Monocytes % (Manual) 9 Eosinophils % Basophils % Hypochromia 1+ Platelet Estimate Adequate PTT (Actin FS) Sodium 137 Potassium 4.0 Chloride 104 Carbon Dioxide 23 Anion Gap 10 BUN 14.0 Creatinine 1.2 Est GFR (CKD-EPI)AfAm 66.26 Est GFR (CKD-EPI)NonAf 57.17 POC Glucometer 113 Random Glucose 98 Hemoglobin A1c % Lactic Acid Calcium 8.1 L Magnesium Total Bilirubin 1.2 H AST 30 ALT 37 Alkaline Phosphatase 82 Total Protein 5.7 L Albumin 3.2 L Urine Color Urine Appearance Urine pH Urine Protein Urine Glucose (UA) Urine Ketones Urine Blood Urine Nitrite Urine Bilirubin Urine Urobilinogen Ur Leukocyte Esterase Urine RBC Urine WBC Ur Transition Epith Cell Urine Bacteria Ur Random Creatinine U Random Total Protein Ur Random Sodium Protein/Creatinin Ratio COVID-19 ([facility]) 09/25/19 09/26/19 09/26/19 06:00 07:09 07:09 WBC 10.5 RBC 4.12 Hgb 13.8 Hct 41.3 MCV 100.4 H MCH 33.5 MCHC 33.4 RDW 12.7 Plt Count 253 MPV 8.0 Absolute Neuts (auto) 7.6 Neutrophils % 72.7 Neutrophils % (Manual) Lymphocytes % 17.7 D Lymphocytes % (Manual) Monocytes % 8.0 Monocytes % (Manual) Eosinophils % 0.8 D Basophils % 0.8 D Hypochromia Platelet Estimate PTT (Actin FS) Sodium 136 Potassium 3.9 Chloride 103 Carbon Dioxide 22 Anion Gap 11 BUN 12.0 Creatinine 1.3 Est GFR (CKD-EPI)AfAm 60.15 Est GFR (CKD-EPI)NonAf 51.90 POC Glucometer Random Glucose 117 H Hemoglobin A1c % 6.2 Lactic Acid Calcium 8.7 Magnesium Total Bilirubin 1.5 H AST 45 H ALT 61 Alkaline Phosphatase 114 D Total Protein 6.4 Albumin 3.4 Urine Color Urine Appearance Urine pH Urine Protein Urine Glucose (UA) Urine Ketones Urine Blood Urine Nitrite Urine Bilirubin Urine Urobilinogen Ur Leukocyte Esterase Urine RBC Urine WBC Ur Transition Epith Cell Urine Bacteria Ur Random Creatinine U Random Total Protein Ur Random Sodium Protein/Creatinin Ratio COVID-19 ([facility]) 09/27/19 09/27/19 09/29/19 07:16 07:16 07:17 WBC 5.8 5.8 RBC 3.82 L 4.24 Hgb 12.6 13.8 Hct 38.1 42.6 MCV 99.7 H 100.5 H MCH 32.9 32.6 MCHC 33.0 32.4 RDW 12.7 13.3 Plt Count 294 372 D MPV 7.6 7.6 Absolute Neuts (auto) 4.0 3.4 Neutrophils % 68.7 58.3 Neutrophils % (Manual) Lymphocytes % 17.0 26.7 D Lymphocytes % (Manual) Monocytes % 10.0 10.2 Monocytes % (Manual) Eosinophils % 4.0 D 4.2 Basophils % 0.3 0.6 Hypochromia Platelet Estimate PTT (Actin FS) Sodium 137 Potassium 3.8 Chloride 105 Carbon Dioxide 25 Anion Gap 7 L BUN 12.0 Creatinine 1.3 Est GFR (CKD-EPI)AfAm 60.15 Est GFR (CKD-EPI)NonAf 51.90 POC Glucometer Random Glucose 124 H Hemoglobin A1c % Lactic Acid Calcium 8.3 L Magnesium Total Bilirubin 1.1 H AST 39 H ALT 66 H Alkaline Phosphatase 113 Total Protein 5.7 L Albumin 3.1 L Urine Color Urine Appearance Urine pH Urine Protein Urine Glucose (UA) Urine Ketones Urine Blood Urine Nitrite Urine Bilirubin Urine Urobilinogen Ur Leukocyte Esterase Urine RBC Urine WBC Ur Transition Epith Cell Urine Bacteria Ur Random Creatinine U Random Total Protein Ur Random Sodium Protein/Creatinin Ratio COVID-19 ([facility]) 09/29/19 09/29/19 09/29/19 07:17 07:17 14:00 WBC RBC Hgb Hct MCV MCH MCHC RDW Plt Count MPV Absolute Neuts (auto) Neutrophils % Neutrophils % (Manual) Lymphocytes % Lymphocytes % (Manual) Monocytes % Monocytes % (Manual) Eosinophils % Basophils % Hypochromia Platelet Estimate PTT (Actin FS) 32.2 Sodium 138 Potassium 4.4 Chloride 103 Carbon Dioxide 23 Anion Gap 12 BUN 14.0 Creatinine 1.4 H Est GFR (CKD-EPI)AfAm 54.99 Est GFR (CKD-EPI)NonAf 47.45 POC Glucometer Random Glucose 150 H Hemoglobin A1c % Lactic Acid Calcium 9.1 Magnesium 2.1 Total Bilirubin 1.1 H AST 26 ALT 56 Alkaline Phosphatase 119 H Total Protein 6.3 L Albumin 3.4 Urine Color Urine Appearance Urine pH Urine Protein Urine Glucose (UA) Urine Ketones Urine Blood Urine Nitrite Urine Bilirubin Urine Urobilinogen Ur Leukocyte Esterase Urine RBC Urine WBC Ur Transition Epith Cell Urine Bacteria Ur Random Creatinine < 13.0 L U Random Total Protein < 5.0 Ur Random Sodium Protein/Creatinin Ratio 0.0 COVID-19 ([facility]) 09/29/19 09/29/19 09/30/19 14:00 14:00 07:41 WBC 6.2 RBC 3.84 L Hgb 13.1 Hct 38.9 MCV 101.1 H MCH 34.2 H MCHC 33.8 RDW 13.1 Plt Count 323 MPV 7.5 Absolute Neuts (auto) 4.3 Neutrophils % 67.8 Neutrophils % (Manual) Lymphocytes % 19.8 D Lymphocytes % (Manual) Monocytes % 7.9 Monocytes % (Manual) Eosinophils % 4.0 Basophils % 0.5 Hypochromia Platelet Estimate PTT (Actin FS) Sodium Potassium Chloride Carbon Dioxide Anion Gap BUN Creatinine Est GFR (CKD-EPI)AfAm Est GFR (CKD-EPI)NonAf POC Glucometer Random Glucose Hemoglobin A1c % Lactic Acid Calcium Magnesium Total Bilirubin AST ALT Alkaline Phosphatase Total Protein Albumin Urine Color Yellow Urine Appearance Clear Urine pH 6.0 Urine Protein Negative Urine Glucose (UA) Negative Urine Ketones Negative Urine Blood Trace-intact Urine Nitrite Negative Urine Bilirubin Negative Urine Urobilinogen 0.2 Ur Leukocyte Esterase Negative Urine RBC Rare Urine WBC Ur Transition Epith Cell Urine Bacteria Ur Random Creatinine 13.8 U Random Total Protein Ur Random Sodium 44 Protein/Creatinin Ratio COVID-19 ([facility]) 09/30/19 10/01/19 10/01/19 07:41 07:33 07:33 WBC 7.8 RBC 4.38 Hgb 14.9 Hct 43.9 MCV 100.1 H MCH 33.9 H MCHC 33.9 RDW 13.2 Plt Count 385 MPV 7.6 Absolute Neuts (auto) 4.8 Neutrophils % 61.4 Neutrophils % (Manual) Lymphocytes % 25.9 D Lymphocytes % (Manual) Monocytes % 8.7 Monocytes % (Manual) Eosinophils % 3.7 Basophils % 0.3 Hypochromia Platelet Estimate PTT (Actin FS) Sodium 138 138 Potassium 4.0 4.4 Chloride 108 H 102 Carbon Dioxide 21 23 Anion Gap 9 13 BUN 14.0 15.0 Creatinine 1.4 H 1.4 H Est GFR (CKD-EPI)AfAm 54.99 54.99 Est GFR (CKD-EPI)NonAf 47.45 47.45 POC Glucometer Random Glucose 112 H 121 H Hemoglobin A1c % Lactic Acid Calcium 8.8 9.4 Magnesium 2.1 2.2 Total Bilirubin 0.7 1.0 AST 21 23 ALT 45 46 Alkaline Phosphatase 102 D 112 D Total Protein 5.9 L 6.6 Albumin 3.3 L 3.8 Urine Color Urine Appearance Urine pH Urine Protein Urine Glucose (UA) Urine Ketones Urine Blood Urine Nitrite Urine Bilirubin Urine Urobilinogen Ur Leukocyte Esterase Urine RBC Urine WBC Ur Transition Epith Cell Urine Bacteria Ur Random Creatinine U Random Total Protein Ur Random Sodium Protein/Creatinin Ratio COVID-19 ([facility]) * IMAGING CxR: No acute lung pathology CT abdomen/ Pelvis: No acute pathology EKG : A-Flutter Renal US: No hydro, left renal simple cyst, no hydro or stones,enlarged prostate Abdominal US: Small likely complex cyst int eh Rt hepatic lobe, measuring 1.5cm , no evidence of stone or cholecystitis HOSPITAL COURSE: Date of Admission:09/24/19 Date of Discharge: 10/02/19 The patient is a 79 year-old male with a PMH significant for aflutter on Eliquis, 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 Admitted for sepsis likely secondary to pyelonephritis. PCP: Dr. Kent Urological surgeon: Dr. Vignesh Costello, [place] *Sepsis likely secondary to pyelonephritis -Max T 101.5, WBC 16.0k, pyuria present on admission; lactic acid wnl -afebrile since 09/23, leukocytosis has resolved -urine culture (+) Enterococcus >100k, Acinetobacter <10k -completed 7 days of Zosyn -ID following by Dr. Ramirez, rec to continue on Augmentin for 7 more days - out pt urology followup *Transitional cell carcinoma s/p right total nephrectomy -no chemo, no radiation; scheduled for full body CT in December *Mildly elevated creatinine -Cr 1.4( baseline unknown) *Aflutter with variable AV block -continue amlodipine, Eliquis -follows with Dr. 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 *Covid Negative *Physical therapy-Pt independent with all functional mobility Minutes to complete discharge: 35 Discharge Summary Problems reviewed: Yes Reason For Visit: UTI SEPSIS Current Active Problems Complicated UTI (urinary tract infection) (Acute) Encounter for screening laboratory testing for COVID-19 virus (Acute) HTN (hypertension) (Acute) Hyperglycemia (Acute) Hyponatremia (Acute) S/p nephrectomy (Acute) Sepsis (Acute) Transitional cell carcinoma (Acute) UTI (urinary tract infection) (Acute) Condition: Fair - Instructions Diet, Activity, Other Instructions: Informed to complete the full course of antibiotics. For any recurrence of fever, chills, urinary retention/ hematuria, advised to get medical attention Referrals: Kristy Kent [Primary Care Provider] - [address] Smith MD [Staff Physician] - Vignesh Costello MD [Non Staff, Medical] - - Home Medications Comprehensive Discharge Medication List: Ambulatory Orders Amlodipine Besylate [Norvasc -] 5 mg PO DAILY 09/24/19 Apixaban [Eliquis] 5 mg PO DAILY 09/24/19 Amox-Tr/K Cl [Augmentin - 875Mg Tablet] 1 tab PO BID #14 tablet 10/02/19 Tamsulosin HCl [Flomax -] 0.4 mg PO DAILY@0830 cap.er.24h 10/02/19 This patient is new to me today: No Emergency Visit: Yes ED Registration Date: 09/24/19 Care time: The patient presented to the Emergency Department on the above date and was hospitalized for further evaluation of their emergent condition. Critical Care patient: No - Discharge Referral Referred to [facility] No
== END 2019-10-02 10:11 | disposition home or self-care (01) | DRG 872 ==
LOC: FER 13:46 → INTOOBSV 15:50 → FM/S 15:50 → OBSVTOIN 15:50
PROVIDERS: ADMIT Internal Medicine; ATTEND Nurse Practitioner Family
DX: A41.81 Sepsis due to Enterococcus (principal); N39.0 Urinary tract infection, site not specified; E87.1 Hypo-osmolality and hyponatremia; I48.92 Unspecified atrial flutter; N12 Tubulo-interstitial nephritis, not specified as acute or chronic; N10 Acute pyelonephritis; Z90.5 Acquired absence of kidney; R73.9 Hyperglycemia, unspecified; I48.91 Unspecified atrial fibrillation; K76.89 Other specified diseases of liver; E86.0 Dehydration
CPT/HCPCS: 36415; 71045-TC-FY; 74176-TC; 76705-TC; 76775-TC; 76856-TC; 80053; 81003; 81015; 82565; 82962; 83036; 83605; 83735; 84156; 84300; 85025; 85730; 87040; 87086; 87186; 93005; 97116-GP; 97161-GP; 99285-25; J0131; U0003

== ENCOUNTER 2023-06-21 04:24 | Emergency (ER) | payer OTHER, MEDICARE ==
[2023-06-21 04:37] VITALS: BP 141/71; PULSE 81; RESP 16; TEMP 97.5; BMI 23.1
[2023-06-21 06:35] LABS: HEMOGLOBIN 12.8 GM/dL (11.7-16.9); MCH 32.1 pg (25.7-33.7); MCHC 32.9 g/dl (32.0-35.9); MEAN CELL VOLUME 97.5 fl (80-96); MEAN PLT VOLUME 8.6 fl (7.5-11.1); PLATELET COUNT 251 10^3/uL (134-434); RDW 16.7 % (11.9-15.9); WHITE BLOOD COUNT 28.3 K/mm3 (4.0-10.0)
[2023-06-21 06:43] LABS: INR 1.2 (0.83-1.09); PROTHROMBIN TIME (PATIENT) 13.5 SEC (9.7-13.0)
[2023-06-21 06:57] LABS: POTASSIUM 4.5 mmol/L (3.5-5.1)
[2023-06-21 06:58] LABS: CALCIUM 9.7 mg/dL (8.5-10.1)
[2023-06-21 06:59] LABS: ALBUMIN 4.1 g/dl (3.4-5.0); BLOOD UREA NITROGEN 20.3 mg/dL (7-18)
[2023-06-21 07:02] LABS: CREATININE 1.4 mg/dL (0.55-1.3)
[2023-06-21 07:04] LABS: BILIRUBIN,TOTAL 0.6 mg/dL (0.2-1); TOT PROT 7.3 g/dl (6.4-8.2)
== END 2023-06-21 07:55 | disposition home or self-care (01) ==
LOC: FER 04:24
DX: K62.5 Hemorrhage of anus and rectum (principal)
CPT/HCPCS: 36415; 80053; 82272; 85027; 85610; 86850; 86900; 86901; 99283-25